=== PATIENT | male | born 1995 | race Caucasian/White ===

== ENCOUNTER 2025-10-07 11:19 | Inpatient (IN) | payer MEDICAID, SELFPAY ==
[2025-10-07] VITALS (14 sets, daily range): BP systolic 123–157; BP diastolic 82–98; PULSE 75–120; RESP 14–97; TEMP 36.2–37.6; O2SAT 95–99; BMI 22.6
--- NOTE | 2025-10-07 12:12 | EKG_ITS ---
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
--- NOTE | 2025-10-07 12:20 | EDNOTE_ITS ---
<Statement entered by Jayda Alvarado MD - 10/07/25 17:40> I, Jayda Alvarado MD, have reviewed the history, exam, and assessment of the patient. I have evaluated the patient independently and agree with the plan of care documented by Dr. Harris. All diagnostic studies were reviewed and discussed. I confirm the diagnosis as documented by the Resident. I was present during the Medical Decision Making for this patient. The patient's plan of care was created between myself and the Resident and consistent with our discussion of the patient's case. The patient presents with acute anemia, evidenced by hemoglobin 6.1, and reports bright red blood in stools for several weeks, raising concern for gastrointestinal bleeding. Additional laboratory findings include lactic acid of 3.5, ferritin 1, iron 9, and glucose 360, which support the diagnosis of iron deficiency and suggest possible systemic effects. The differential diagnosis includes gastrointestinal bleed, thalassemia, sickle cell disease, and chronic kidney disease. Evaluation includes history focused on bleeding risk factors and physical examination for signs of active bleeding or abdominal pathology. The disposition and management plan are guided by the severity of anemia and ongoing bleeding risk, with further workup and close monitoring warranted. ED GI Bleed RME/HPI General Chief complaint: General Adult/Misc Complain Stated complaint: SENT BY PMD FOR LOW HEMOGLOBIN Time Seen by Provider: 10/07/25 11:55 Arrival date/time: 10/07/25 11:19 RME / HPI RME / HPI Narrative: cc: low hemoglobin Patient is a 30-year-old male with a past medical history of developmental delays-mostly nonverbal, diabetes mellitus type 1-[id number], GERD, and anxiety who presented to the emergency room with via private vehicle with a chief complaint of low hemoglobin . Patient was alerted by primary care provider who called and recommended patient follow-up with the emergency room for possible transfusion. Patient's guardian/mother at bedside stated over 2 weeks patient has experienced bright red blood per rectum also noted in stool. This is never happened before. Denied history of ulcers or hemorrhoids. Denied fevers or chills at home. Denied any abdominal pain. Regular bowel movements. Denied diarrhea. Denied blood in urine. No changes in urination. FOBT Negative Related Data Allergies Allergy/AdvReac Type Severity Reaction Status Date / Time pseudoephedrine Allergy Severe PT GETS Verified 10/07/25 11:22 HYPER PER MOM Review of Systems Review of Systems Narrative Review of Systems: General appearance: NO weight change, NO fatigue, NO weakness, NO fever, NO chills, NO night sweats, No cough Skin: NO rash, NO itching, NO sores, NO moles HEENT: NO Trauma, NO nausea, NO vomiting, NO visual changes, NO blurry vision, NO double vision, NO tinnitus, NO vertigo, NO ear discharge, NO rhinorrhea, NO stuffiness, NO sneezing, NO allergy, NO epistaxis. NO Hoarseness, NO sore throat, NO swollen neck. Cardiac: NO Palpitations, NO dyspnea on exertion, NO orthopnea, NO paroxysmal nocturnal dyspnea, NO edema Respiratory: NO Shortness of Breath, NO Wheezing, NO Cough, NO Sputum, NO hemoptysis GI:NO appetite, NO nausea, NO vomiting, NO dysphagia, NO changes in bowel frequency, NO stool color, NO diarrhea, NO constipation, NO hemetemesis, NO hemorrhoids, NO melena, Yes hematechezia, NO abdominal pain, NO jaundice Renal: NO frequency, NO hesitancy, NO urgency, NO hematuria, NO nocturia, NO incontinence MSK: NO muscle weakness, NO gout, NO arthritis, NO muscle stiffness Neuro: NO headaches, NO tremors, NO weakness, NO paralysis, NO seizures, NO loss of consciousness, NO numbness. Hem: NO anemia, NO easy bruising/bleeding, NO petechiae, NO purpura Endo: NO heat/cold intolerance, NO excessive sweating, NO polyuria, NO polydipsia, NO polyphagia, NO thyroid problems, NO diabetes Pysch: NO mood, NO anxiety, NO depression ED Exam Narrative Physical exam: General Appearance: Alert & Oriented X3, well-nourished female who is lying in bed in no acute distress HEENT: Skull symmetrical and atraumatic. Conjunctivae pink and moist. Pupils equal, round, reactive to light and accommodation (PERRL). External ear without lesion or discharge. Straight, nares patient, mucosa pink, no discharge. Cardio: Normal Rate and Rhythm with S1 and S2 heart sounds. No murmurs or extra heart sounds auscultated. No bruits on carotid auscultation. No peripheral edema or cyanosis. Lungs: Symmetric with good expansion. Chest and back non-tender. Breath sounds vesicular without crackles, wheezing or rhonchi Abdomen: Non-tender, Non-distended, Normal Reactive Bowel Sounds Neuro: Alert, cooperative, oriented to person, place, and time. Speech clear. CN grossly intact. Upper motor strength 5/5 and Lower motor strength 5/5. Sensation intact. Course Quality Measures none Orders Category Date Time Status CT Screening NOW Care 10/07/25 12:22 Active Loan Workout Officer Q4H START 00 Care 10/07/25 12:20 Active Continuous Pulse Oximetry NOW Care 10/07/25 12:20 Completed Insert IV NOW Care 10/07/25 12:17 Active Occult Blood,Stool (Nursing) NOW Care 10/07/25 12:14 Active Orthostatic Vitals NOW Care 10/07/25 12:20 Active Transfuse,blood/blood products NOW Care 10/07/25 12:52 Active Consult to Gastroenterology Stat Cons 10/07/25 13:[address] abdomen pelvis w con Stat Exams 10/07/25 12:22 Ordered CBC Stat Lab 10/07/25 12:10 Completed CMP [Comprehensive Metabolic Panel] Stat Lab 10/07/25 12:10 Completed Ferritin Stat Lab 10/07/25 12:10 Completed Iron Panel Stat Lab 10/07/25 12:10 Completed Lactic Acid [Lactate (Lactic Acid)] Stat Lab 10/07/25 12:10 Results Lactic Acid [Lactate (Lactic Acid)] Stat Lab 10/07/25 13:53 Completed Path Review Blood Smear Stat Lab 10/07/25 12:10 Completed Reticulocyte Count Stat Lab 10/07/25 12:10 Completed Type and Screen Stat Lab 10/07/25 12:10 Results prbc [Red Blood Cells] Stat Lab 10/07/25 12:10 Results Pantoprazole Inj [Protonix Inj] Med 10/07/25 12:20 Discontinued 80 mg IVP X1 ONE Ringers Lactated 1000 ml [Lactated Ringers] 1,000 ml Med 10/07/25 12:12 Discontinued IV 999 mls/hr EKG (RT) Stat RT 10/07/25 12:12 Draft Vital Signs Vital signs: Vital Signs Temperature 98.6 F 10/07/25 11:55 Pulse Rate 120 H 10/07/25 11:55 Respiratory Rate 18 10/07/25 11:55 Blood Pressure 150/89 H 10/07/25 11:55 Pulse Oximetry (%) 98 10/07/25 11:55 Oxygen Delivery Method Room Air 10/07/25 11:55 GI Bleed Patient data External records reviewed:: [facility] previous records Clinical information provided by:: none Social determinants that could affect healthcare access:: mental health (hx of developmental delay) Patient has the following chronic illnesses:: Developmental Delay-nonverbal, Diabetes Mellitus type 2 non insulin dependent, anxiety How is presenting disease/condition affected by chronic disease/condition?: exacerbated by (GERD ) Evaluation data The following diagnostics were reviewed and interpreted by me:: lab results and radiology exam(s) Lab and/or radiology exams considered but not ordered:: None Interpretation Summary: Patient is a 30-year-old male with history of developmental delay, anxiety, and diabetes mellitus type 2 who presented to the emergency room with a chief complaint of bright red blood per rectum ongoing for the past 2 weeks off-and-on. Patient's was called by his primary doctor's office to follow-up with the emergency room as his hemoglobin was 6 as an outpatient. No leukocytosis noted on CBC and hemoglobin of 6.1 hematocrit 23.7 and MCV of 63 concern for microcytic anemia. Lactic acid noted 3.5. Sinus tachycardia. Pantoprazole 80 mg IV x 1 given and 1 L bolus. FOBT negative. #Acute blood loss anemia #Acute microcytic anemia #Lactic acidosis - The patient's plan was discussed with attending Dr. Gloria Harris MD PGY2 Internal Medicine Medications / Prescriptions Medications or Prescriptions considered but not ordered:: none Medication administrations:: Medication Administration History Discontinued Medications Lactated Ringer's (Lactated Ringers) 1,000 mls @ 999 mls/hr IV .Q1H1M ONE Stop: 10/07/25 13:12 Last Infusion: 10/07/25 13:20 Dose: Infused Documented By: Admin: 10/07/25 12:26 Dose: 999 mls/hr Documented By: EF Pantoprazole Sodium (Pantoprazole Inj 40 Mg Vial) 80 mg IVP X1 ONE Stop: 10/07/25 12:21 Last Admin: 10/07/25 12:25 Dose: 80 mg Documented By: EF same as above Consultations Consultation(s) initiated? (list below): Yes Consultation #1 (Physician, Specialty, Details): Gastroenterology, Dr. Mayes Time: 13:29 Diagnosis GI bleed differential diagnosis: esophageal varices, Upper gastrointestinal hemorrhage and Lower gastrointestinal hemorrhage Most likely diagnosis given after review of the tests above:: Patient is a 30-year-old male with history of developmental delay, anxiety, and diabetes mellitus type 2 who presented to the emergency room with a chief complaint of bright red blood per rectum ongoing for the past 2 weeks off-and-on. Patient's was called by his primary doctor's office to follow-up with the emergency room as his hemoglobin was 6 as an outpatient. No leukocytosis noted on CBC and hemoglobin of 6.1 hematocrit 23.7 and MCV of 63 concern for microcytic anemia. Lactic acid noted 3.5. Sinus tachycardia. Pantoprazole 80 mg IV x 1 given and 1 L bolus. FOBT negative. #GI bleed #Acute blood loss anemia #Acute microcytic anemia #Lactic acidosis . Admission Indicated Admission indicated?: indicated Admission Request Was there a request for admission?: Yes Admission Attestation Admission request attestation: Discussed case with Dr. Huang,PGY-1 from Hospitalist service regarding admission. Discussed patients ED course, exam findings, labs, and radiology results. The Hospitalist agrees to accept the patient for admission. Disposition Plan Disposition Plan: Admit Discharge Plan Plan Patient Disposition: Admit Acute Care w/in Hospital Patient condition on transfer: Stable Prescriptions/Referrals Referrals: Julia Lorenz PA-C [Primary Care Provider] - In 1 week Problem List Clinical Impression: Acute bleeding Patient/Caregiver Discharge Instructions Print Language: Pashto Stand Alone Forms: [employer] Award Info., Patient Portal Info Letter
[2025-10-07 12:24] LABS: Lactate (Lactic Acid) 3.5 mMol/L (0.4-2.0)
[2025-10-07] MEDS: RINGERS LACTATED 1000 ML 1,000 ML 999 ML IV (12:26)
[2025-10-07 12:32] LABS: Basophils # (Auto) 0.0 Thou/mm3 (0.0-0.2); Basophils % (Auto) 1 % (0-2.5); Eosinophils # (Auto) 0.1 Thou/mm3 (0.0-0.5); Eosinophils % (Auto) 1 % (0-10); Hematocrit 23.7 % (41.0-53.0); Immature Granulocytes Auto 0.01 Thou/mm3 (0.00-0.00); Immature Reticulocyte Fraction 21.3 % (2.3-13.4); Lymphocytes # (Auto) 0.8 Thou/mm3 (1.0-4.8); Lymphocytes % (Auto) 14 % (10-50); Mean Corpuscular HGB Conc 25.7 g/dl (31.0-37.0); Mean Corpuscular Hemoglobin 16.1 pg (25.0-35.0); Mean Corpuscular Volume 63 fL (80-100); Monocytes # (Auto) 0.3 Thou/mm3 (0.0-0.8); Monocytes % (Auto) 5 % (0-12); Neutrophils # (Auto) 4.7 Thou/mm3 (1.8-7.7); Neutrophils % (Auto) 80 % (37-80); Nucleated Red Blood Cell # 0.00 Thou/mm3 (0.00-0.00); Nucleated Red Blood Cell % 0 /100 WBC (0); Platelet Count 385 Thou/mm3 (140-440); RDW Standard Deviation 45.2 fL (35.1-43.9); Red Blood Count 3.78 Miln/mm3 (4.50-5.90); Reticulocyte % (Auto) 1.4 % (0.5-1.5); Reticulocyte Absolute Auto 52.5 Biln/L (25.0-75.0); Reticulocyte Hgb Content 15.6 pg (28.0-35.0); White Blood Count 5.9 Thou/mm3 (3.8-10.6)
[2025-10-07 12:39] LABS: Hemoglobin 6.1 g/dL (13.5-16.0)
[2025-10-07 12:45] LABS: Alanine Aminotransferase 15 U/L (10-49); Albumin, Serum 5.0 gm/dL (3.5-5.0); Albumin/Globulin Ratio 1.9 (1.2-2.2); Alkaline Phosphatase 78 U/L (46-116); Anion Gap 13 (7-16); Aspartate Amino Transferase 24 U/L (0-34); BUN/Creatinine Ratio 11 Ratio (12-20); Bilirubin,Total 0.3 mg/dL (0.3-1.2); Blood Urea Nitrogen 9 mg/dL (9-23); Calcium 9.3 mg/dL (8.3-10.6); Calcium (Corrected) 9.3 mg/dL (8.5-10.1); Carbon Dioxide 24.2 mMol/L (20.0-31.0); Chloride 101 mMol/L (98-107); Creatinine (Component) 0.8 mg/dL (0.6-1.3); Estimated Creatinine Clearance 122.4 mL/min (>60); Globulin 2.6 gm/dL (2.3-3.5); Glucose 360 mg/dL (74-106); Osmolality,Calculated 289 (275-295); Potassium 4.5 mMol/L (3.4-5.1); Sodium 138 mMol/L (136-145); Total Protein 7.6 gm/dL (5.7-8.2); eGFR > 60 See Note
[2025-10-07 12:46] LABS: Path Review Blood Smear Sent to Pathologist
[2025-10-07 13:05] LABS: Ferritin 1 ng/mL (10.5-307.3); Iron 9 mcg/dL (65-175); Percent Iron Saturation 2 % (20-55); Total Iron Binding Capacity 423 mcg/dL (250-425); Unsaturated Iron Binding 414 (225-295)
[2025-10-07 13:59] LABS: Lactate (Lactic Acid) 1.7 mMol/L (0.4-2.0)
--- NOTE | 2025-10-07 14:33 | XR_ITS ---
Examination: . CTA abdomen, with intravenous contrast. CTA pelvis, with intravenous contrast. 2-D sagittal and coronal reconstructions. 3-D reconstructions. Date and time of exam: October 07, 2025, 1533 hours INDICATIONS: Anemia, diagnosis lower gastrointestinal bleeding CTDI vol (mgy) 7.03 DLP (MGycm) 366 Technique: Multiple CTA images, 2.0 mm slice thickness, obtained abdomen, pelvis, with the high-resolution 64 slice scanner. 100 cc Isovue-370 is administered intravenously. Sagittal and coronal 2-D reconstructions are obtained. 3-D reconstructions, angiographic images are obtained. 3-D postprocessing, including vascular maximum intensity projections. Low dose protocols were performed. One or more of the following dose reduction techniques were used; automated exposure control, adjustment of the mA and/or KV according to patient size, use of iterative reconstruction technique. Findings: No visualized liver or splenic lesion No gallstones No pancreatic or adrenal mass Common bile duct 7 mm No renal or ureteral calculi, no hydronephrosis No abnormal extravasation of contrast in the stomach small bowel or large bowel Negative for prostatomegaly No pericecal inflammatory change No diverticulitis Distended urinary bladder Normal appendix IMPRESSION: Mildly enlarged common bile duct, recommend hepatobiliary sonography follow-up No abnormal extravasation of contrast in the gastrointestinal tract Normal appendix No diverticulitis
--- NOTE | 2025-10-07 14:44 | ESHP_ITS ---
<Statement entered by Guillermo Temple MD - 10/19/25 08:30> I reviewed above note and agree with findings and plans. I have also personally examined the patient with medicine team and went over assessment and plan with medical team including international exchange coordinator and resident physician. Documentation for date of: 10/07/25 HPI History of Present Illness Chief complaint: acute anemia and BRBPR History of present illness: Mr. Byers is a 30 year old gentleman with developmental delay and insulin dependent type 2 dm, who presented to the ed following a phone call from his primary care doctor stating that his hgb was 6 and that he should go to the ED emergently. She states that he has a history of iron deficiency anemia for which he takes iron supplements for every other day. She states that he has never had a blood transfusion before, nor colonoscopy, nor EGD. She states that about 1 month ago she began to notice bright red blood per rectum. She states that he does strain with bowel movements. At the daytime facility that the patient attends that some of the staff noticed that the patient was pale and that he was slightly more fatigued than usual. No recent traumas or injuries. She reports seldom use of nsaids and occasional APAP use for headaches or Excedrin. PMH Insulin dependent type 2DM, Meds: APAP and ibuprofen seldomly , iron supplements every other day, and insulin 34 units long acting and 10 units with meals short acting Social Hx. pt lives at home with mom, Yuliya. He is able to ambulate intependently and frequently runs, he can feed himself, and does have hx of self inflicted biting ROS per report from patient momYuliya: Denies abdominal pain, cough, fever, chills, dizziness or difficulty with gait (states that patient likes to run) Endorses fatigue, pallor, constipation, ED course VS afebrile, HR 120s BP 150/89, RR 18, satting 98 on RA Labs notable for hgb 6.1, and low iron panel and ferritin, Glucose elvated at 360, LA wnl 1.7, FOBT negative Imaging: EKG with sinus tachycardia pending CT AP Tx Protonix IV 80 x1 1L LR 2 units PRBC Exam Vital Signs Temp Pulse Resp BP Pulse Ox O2 Del Method 99.2 F 113 H 14 127/89 H 98 Room Air 10/07/25 14:20 10/07/25 14:20 10/07/25 14:20 10/07/25 14:20 10/07/25 14:20 10/07/25 11:55 Narrative Exam GENERAL: no acute distress, hx of developmental delay, unable to assess for orientation, pt is awake and engaging with provider during exam, able to follow simple commands, comfortably laying in bed HEENT: Head AT/ NC. Mucous membranes moist. PERRL. NECK: Supple, no lymphadenopathy, no carotid bruits. CARDIOVASCULAR: sinus tachycardia . Normal S1/S2, No m/r/g. No pitting edema of bilateral LEs. normal capillary refill. RESPIRATORY: CTAB. No wheezing, rhonchi, crackles. GASTROINTESTINAL:abdomen is firm, non tender no palpable masses. Bowel sounds present. no epigastric tenderness on exam no grimacing on abdominal exam to deep palpation MUSCULOSKELETAL:? No cyanosis or edema, no visible joint swelling. NEUROLOGICAL: CN II-XII grossly intact. No focal deficits. Sensation intact, symmetric. able to follow commands PSYCHIATRIC: Awake and alert, not agitated, normal mood and affect. SKIN: anterior chest with some errythematous acne , Mom reports pt has self inflicted bite isaac on his UE. Results: Labs 10/07/25 12:10 10/07/25 12:10 Labs: Short CBC 10/07/25 Range/Units 12:10 WBC 5.9 (3.8-10.6) Thou/mm3 Hgb 6.1 L* (13.5-16.0) g/dL Hct 23.7 L (41.0-53.0) % Plt Count 385 (140-440) Thou/mm3 BMP 10/07/25 12:10 Sodium 138 Potassium 4.5 Chloride 101 Carbon Dioxide 24.2 BUN 9 Creatinine 0.8 Glucose 360 H Calcium 9.3 Liver Function 10/07/25 Range/Units 12:10 Total Bilirubin 0.3 (0.3-1.2) mg/dL AST 24 (0-34) U/L ALT 15 (10-49) U/L Alkaline Phosphatase 78 (46-116) U/L Albumin 5.0 (3.5-5.0) gm/dL Quality Measures Quality Measures VTE prophylaxis Medications Home Medications and Allergies Allergies Allergy/AdvReac Type Severity Reaction Status Date / Time pseudoephedrine Allergy Severe PT GETS Verified 10/07/25 11:22 HYPER PER MOM Visit Medications Acetaminophen (Acetaminophen 325 Mg Tablet) 650 mg PO Q6H PRN PRN Reason: PAIN SCALE 1-3 (mild Stop: 11/06/25 14:32 Dextrose (Dextrose 50%-Water Inj 50 Ml Syringe) 25 ml IV Q15MIN PRN PRN Reason: BG 50-70 responsive npo pt Stop: 11/06/25 14:35 Dextrose (Dextrose 50%-Water Inj 50 Ml Syringe) 50 ml IV Q15MIN PRN PRN Reason: BG <50 OR BG <70 & pt unresponsive Stop: 11/06/25 14:35 Glucagon (Glucagon Inj 1 Mg Vial) 1 mg IM Q15MIN PRN PRN Reason: BG <70, and no IV access Lactated Ringer's (Lactated Ringers) 1,000 mls @ 75 mls/hr IV .[id number] MEAGAN Stop: 11/06/25 14:44 Insulin Human Lispro (Insulin Lispro (Admelog) 1 Unit/0.01 Ml Unit) 0 unit SC AC MEAGAN; Protocol Stop: 11/06/25 16:59 Ondansetron HCl (Ondansetron Inj 2 Mg/Ml Inj 2 Ml) 4 mg IVP Q6H PRN; Protocol PRN Reason: NAUSEA OR VOMITING Stop: 11/06/25 14:32 Discontinued Medications Lactated Ringer's (Lactated Ringers) 1,000 mls @ 999 mls/hr IV .Q1H1M ONE Stop: 10/07/25 13:12 Last Infusion: 10/07/25 13:20 Dose: Infused Pantoprazole Sodium (Pantoprazole Inj 40 Mg Vial) 80 mg IVP X1 ONE Stop: 10/07/25 12:21 Last Admin: 10/07/25 12:25 Dose: 80 mg Assessment & Plan Plan Mr Byers is a 30 year old man with developmental delay who presented with reported BRBPR and low Hgb, and history of GERD and DM, who was found to have Acute microcytic anemia with Hgb 6.1, hemodynamically stable with SBP 150s, HR 120s, admitted for hematechezia pending colonoscopy. Hematachezia Acute on Chronic Microcytic Anemia Constipation SBP 150, HR tachy to 110s per mom had BRBPR, for the past month, states that he strains often with BMs never has had colonoscopy before. she states that he infrequently takes NSAIDs Dx Ferritin low Iron Saturation 2% Iron Low Follow up post transfusion H and H Follow up CT angio abdomen and pelvis Tx Transfuse 2 units prbc IV Iron tomorrow Transfuse if hgb >7 or if symptomatic Plan NG tube ordered for golyteley prep GI consulted, appreciate recs NPO pending colonoscopy GERD per mom it is difficult to ascertain whether he has gerd symptoms given his developmental delay Plan protonix 40 iv qd #Insulin Dependent Type 2 DM A1c pending Blood glucose 360, Home regimen: 34 units long acting qhs and ~10 Units Short acting with meals. Mom states that his sugars generally run high at home and that the insulin regimen was adjusted about 3 months ago Plan SSI step 3 q6hr bedside glucose checks given npo Gave x1 3 Units Regular Insulin IV for bedside glucose 265 Developmental Delay pt is semi verbal and responds with a few words Mom, Yuliya, plans to stay overnight with patient. Spoke with Charge Nurse on Tele, who is ok for pt mom to stay with him overnight - ok for benydrl IV if agitated Dispo: tele pending colonoscopy, ongoing blood transfusions, follow up post transfusion prbc Diet: npo Bowel Reg: golytely prep VTE ppx: hold in setting of suspected GI bleed, SCD q shift GI ppx: Protonix 40 qd IV Code status: Full Plan discussed with my attending Dr. Maverick Chris MD PGY1
--- NOTE | 2025-10-07 14:52 | PD.RESCONSUL ---
HPI Data of Consult Consult date: 10/07/25 Requesting Physician: Guillermo Temple MD Admitting Provider: Guillermo Temple MD Attending Provider: Guillermo Temple MD Primary Care Provider: Julia Lorenz PA-C Consult Narrative Reason for consult: GI bleed History of present illness: Patient is a 60-year-old male past medical history of developmental delays (mostly nonverbal), type 2 diabetes mellitus, GERD, anxiety who presented to the ED on 10/07/2025 with his mother for chief complaint of low hemoglobin. The patient is nonverbal but responds to questions by nodding his head. Most of the history was obtained from his guardian, his mother, at the bedside. According to the mother, the patient has had intermittent bright red blood per rectum for the past 2 weeks to 1 month, with the bleeding becoming more consistent over the past week. The patient recently had a routine checkup with his primary care provider, where blood tests revealed low hemoglobin, prompting the visit to the ED for further evaluation. The guardian reports no prior episodes of hematochezia. The patient denies fever, chills, abdominal pain, changes in bowel movements, nausea, vomiting, or hematuria, hemorrhoids. There is no family history of gastrointestinal or colorectal cancer, though the mother has a history of thyroid cancer. Significant labs and imaging: -Hemoglobin 6.1, hematocrit 23.7, MCV 63, iron 9, iron saturation 2, ferritin - Abdominal CT, pending cc:: cc: Guillermo Temple MD Exam Vital Signs Temp Pulse Resp BP Pulse Ox O2 Del Method 99.2 F 113 H 14 127/89 H 98 Room Air 10/07/25 14:20 10/07/25 14:20 10/07/25 14:20 10/07/25 14:20 10/07/25 14:20 10/07/25 11:55 Narrative Exam General: Alert, no acute distress.Palor, nonverbal Skin: Warm, dry, intact. No rash or ecchymoses. Head: Normocephalic, atraumatic. Eye: Normal conjunctiva, PERRL. Throat: Oral mucosa moist. No obvious lesions in oropharynx. Cardiovascular: Tachycardic, no murmur, +S1/S2. Respiratory: Lungs are clear to auscultation, respirations unlabored, no crackles, no wheezing. Gastrointestinal: Soft, nontender, non-distended. No guarding or rebound tenderness. Hematochezia Extremities: No edema, no cyanosis, no clubbing. Neuro: Alert and oriented x3.No focal deficits observed. Conversant, moving all extremities. No overt cerebellar signs/incoordination. Psychiatric: Cooperative, appropriate affect Results Labs 10/07/25 20:28 10/07/25 12:10 Labs: Short CBC 10/07/25 Range/Units 12:10 WBC 5.9 (3.8-10.6) Thou/mm3 Hgb 6.1 L* (13.5-16.0) g/dL Hct 23.7 L (41.0-53.0) % Plt Count 385 (140-440) Thou/mm3 BMP 10/07/25 12:10 Sodium 138 Potassium 4.5 Chloride 101 Carbon Dioxide 24.2 BUN 9 Creatinine 0.8 Glucose 360 H Calcium 9.3 Liver Function 10/07/25 Range/Units 12:10 Total Bilirubin 0.3 (0.3-1.2) mg/dL AST 24 (0-34) U/L ALT 15 (10-49) U/L Alkaline Phosphatase 78 (46-116) U/L Albumin 5.0 (3.5-5.0) gm/dL Quality Measures Quality Measures none Medications Home Medications and Allergies Home Medications ?Medication ?Instructions ?Recorded ?Confirmed ?Type insulin glargine 100 unit/mL (3 44 unit subcut HS 10/07/25 10/07/25 History mL) subcutaneous pen (Basaglar KwikPen U-100 Insulin) insulin lispro 100 unit/mL 1 sliding scale dose subcut .with 10/07/25 10/07/25 History subcutaneous pen (Admelog SoloStar meals U-100 Insulin lispro) olanzapine 2.5 mg tablet 2.5 mg PO QDAY 10/07/25 10/07/25 History omeprazole 20 mg capsule,delayed 20 mg PO QDAY 10/07/25 10/07/25 History release risperidone 0.5 mg tablet 0.5 mg PO BID 10/07/25 10/07/25 History sitagliptin phosphate 50 1 tab PO BIDWM 10/07/25 10/07/25 History mg-metformin 500 mg tablet (Janumet) Allergies Allergy/AdvReac Type Severity Reaction Status Date / Time pseudoephedrine Allergy Severe PT GETS Verified 10/07/25 11:22 HYPER PER MOM Visit Medications Acetaminophen (Acetaminophen 325 Mg Tablet) 650 mg PO Q6H PRN PRN Reason: PAIN SCALE 1-3 (mild Stop: 11/06/25 14:32 Dextrose (Dextrose 50%-Water Inj 50 Ml Syringe) 25 ml IV Q15MIN PRN PRN Reason: BG 50-70 responsive npo pt Stop: 11/06/25 14:35 Dextrose (Dextrose 50%-Water Inj 50 Ml Syringe) 50 ml IV Q15MIN PRN PRN Reason: BG <50 OR BG <70 & pt unresponsive Stop: 11/06/25 14:35 Glucagon (Glucagon Inj 1 Mg Vial) 1 mg IM Q15MIN PRN PRN Reason: BG <70, and no IV access Lactated Ringer's (Lactated Ringers) 1,000 mls @ 75 mls/hr IV .[id number] MEAGAN Stop: 11/06/25 14:44 Insulin Human Lispro (Insulin Lispro (Admelog) 1 Unit/0.01 Ml Unit) 0 unit SC AC MEAGAN; Protocol Stop: 11/06/25 16:59 Ondansetron HCl (Ondansetron Inj 2 Mg/Ml Inj 2 Ml) 4 mg IVP Q6H PRN; Protocol PRN Reason: NAUSEA OR VOMITING Stop: 11/06/25 14:32 Discontinued Medications Lactated Ringer's (Lactated Ringers) 1,000 mls @ 999 mls/hr IV .[id number] ONE Stop: 10/07/25 13:12 Last Infusion: 10/07/25 13:20 Dose: Infused Pantoprazole Sodium (Pantoprazole Inj 40 Mg Vial) 80 mg IVP X1 ONE Stop: 10/07/25 12:21 Last Admin: 10/07/25 12:25 Dose: 80 mg Assessment & Plan Plan Patient is a 60-year-old male past medical history of developmental delays (mostly nonverbal), type 2 diabetes mellitus, GERD, anxiety who presented to the ED on 10/07/2025 with his mother for chief complaint of low hemoglobin. Gastroenterology consulted for hematochezia. Patient admitted for lower GI bleed evaluation and management. #Acute blood loss anemia 2/2 #Hematochezia, lower GI bleed #Iron deficiency anemia, microcytic anemia Patient presented with 2 weeks 2 weeks of hematochezia with no melena and hematemesis. Patient denies abdominal pain, nausea, vomiting, diarrhea. Patient looks pale and is tachycardic, with no fever or leukocytosis. 2 units of pRBC order by ED provider, currently transfusing 1 bag. Iron deficiency anemia likely in setting of acute blood loss anemia. Hemoglobin 6.1,hematocrit 23.7. Lactic acid 3.5, iron 9, iron saturation 2, ferritin 1, iron saturation 2%, RDW 45.2 -Patient typed and screened -Monitor H&H. Transfusing for Hgb <7 or symptomatic. - Replete Iron -Avoid NSAIDs/ASA/chemical prophylaxis -Pantoprazole BID 40mg IV - Clear liquid diet - Start Golytely post-transfusion - Obtain consent for colonoscopy with possible biopsy possible therapeutic intervention under intravenous moderate sedation -Pain and nausea control as needed # Type 2 diabetes mellitus #GERD #Anxiety -Continue management per primary team Patient seen and assessed under supervision of attending physician Dr.Kumar Zeny Hernandez MD PGY-1, Internal Medicine Please note: this document was transcribed using voice recognition technology; minor inaccuracies may be present. Attending Provider Attestation/Addendum Patient evaluated laboratory data reviewed and imaging studies reviewed patient with hematochezia GoLytely prep once clear consent obtained for fiberoptic colonoscopy with possible biopsy possible therapeutic intervention under intravenous moderate sedation serial CBC will follow the patient Thank you very much for the opportunity to participate in the care of this patient
[2025-10-07] MEDS: RINGERS LACTATED 1000 ML 1,000 ML 75 ML IV (15:19)
[2025-10-07 15:21] LABS: Reflex Lactate? Y
--- NOTE | 2025-10-07 15:52 | PC.SS ---
Patient Napoleon Byers is a 30 Year old male who was brought in the emergency room for Lower GI Bleed Severe Microcytic Anemi. SS met at bedside, patient was getting procedure at the time. Patient's grandmother, Fannie Byers was able to verify demographic information. Fannie reports patient's mother, Yuliya Byers is surrogate decision maker, [phone]. Patient is Developmentally delayed and is non verbal. Patient is able to complete all ADL's independently and does not utilize any source of DME to assist with ambulation. Choice of pharmacy is [facility]. PCP is Julia Lorenz. At time of discharge patient will return back home, no further needs at the time. Discharge plan: Home Next of kin, Mother, Yuliya Byers PCP: Julia Lorenz
--- NOTE | 2025-10-07 16:58 | XR_ITS ---
EXAMINATION: AP chest single view TECHNIQUE: AP portable semiupright chest single view Date and time: October 07, 2025, 1714 hours, comparison August 20, 2009 INDICATIONS: Post orogastric tube placement FINDINGS: Orogastric tube in the stomach satisfactory position. Normal heart size No lobar pneumonia The osseous structures are intact IMPRESSION: Orogastric tube in the stomach satisfactory position
[2025-10-07 17:19] LABS: Lactic Acid, 3 HR 1.9 mMol/L (0.4-2.0)
[2025-10-07] MEDS: INSULIN LISPRO (AdmeLOG) 1 UNIT/0.01 ML UNIT SC (17:30)
[2025-10-07 17:32] LABS: Glucose Estimated Average 194 mg/dL (80-131); Hemoglobin A1C 8.4 % Hgb (4.8-6.0)
[2025-10-07] MEDS: INSULIN HUM REGULAR 1 UNIT/0.01 ML (PER UNIT) 3 UNIT IV (17:33)
[2025-10-07 20:42] LABS: Hematocrit 26.7 % (41.0-53.0)
[2025-10-07 20:50] LABS: Hemoglobin 7.7 g/dL (13.5-16.0)
[2025-10-07] MEDS: NA SU/NAHCO3/KC/PEG (Golytely) 4,000 ML BTL 4000 ML PO (22:16)
[2025-10-08] VITALS (8 sets, daily range): BP systolic 125–140; BP diastolic 73–94; PULSE 77–114; RESP 15–99; TEMP 36.1–37.1; O2SAT 92–98; BMI 20.8; BMI 20.7
[2025-10-08] MEDS: RINGERS LACTATED 1000 ML 1,000 ML 75 ML IV ×2 (05:14→17:23)
[2025-10-08] MEDS: INSULIN LISPRO (AdmeLOG) 1 UNIT/0.01 ML UNIT SC ×3 (05:37→17:22)
[2025-10-08 06:08] LABS: Basophils # (Auto) 0.0 Thou/mm3 (0.0-0.2); Basophils % (Auto) 0 % (0-2.5); Eosinophils # (Auto) 0.1 Thou/mm3 (0.0-0.5); Eosinophils % (Auto) 1 % (0-10); Hematocrit 27.7 % (41.0-53.0); Immature Granulocytes Auto 0.02 Thou/mm3 (0.00-0.00); Lymphocytes # (Auto) 1.0 Thou/mm3 (1.0-4.8); Lymphocytes % (Auto) 14 % (10-50); Mean Corpuscular HGB Conc 28.2 g/dl (31.0-37.0); Mean Corpuscular Hemoglobin 19.2 pg (25.0-35.0); Mean Corpuscular Volume 68 fL (80-100); Monocytes # (Auto) 0.5 Thou/mm3 (0.0-0.8); Monocytes % (Auto) 6 % (0-12); Neutrophils # (Auto) 5.7 Thou/mm3 (1.8-7.7); Neutrophils % (Auto) 79 % (37-80); Nucleated Red Blood Cell # 0.00 Thou/mm3 (0.00-0.00); Nucleated Red Blood Cell % 0 /100 WBC (0); Platelet Count 284 Thou/mm3 (140-440); RDW Standard Deviation 59.8 fL (35.1-43.9); Red Blood Count 4.06 Miln/mm3 (4.50-5.90); White Blood Count 7.3 Thou/mm3 (3.8-10.6)
[2025-10-08 06:16] LABS: Hemoglobin 7.8 g/dL (13.5-16.0)
[2025-10-08 06:38] LABS: Alanine Aminotransferase 11 U/L (10-49); Albumin, Serum 4.4 gm/dL (3.5-5.0); Albumin/Globulin Ratio 1.7 (1.2-2.2); Alkaline Phosphatase 72 U/L (46-116); Anion Gap 16 (7-16); Aspartate Amino Transferase < 8 U/L (0-34); BUN/Creatinine Ratio 10 Ratio (12-20); Bilirubin,Total 1.2 mg/dL (0.3-1.2); Blood Urea Nitrogen 6 mg/dL (9-23); Calcium 9.5 mg/dL (8.3-10.6); Calcium (Corrected) 9.5 mg/dL (8.5-10.1); Carbon Dioxide 21.5 mMol/L (20.0-31.0); Chloride 103 mMol/L (98-107); Creatinine (Component) 0.6 mg/dL (0.6-1.3); Estimated Creatinine Clearance 150.3 mL/min (>60); Globulin 2.6 gm/dL (2.3-3.5); Glucose 293 mg/dL (74-106); Magnesium 1.7 mg/dL (1.6-2.6); Osmolality,Calculated 288 (275-295); Phosphorous 2.8 mg/dL (2.4-5.1); Potassium 4.2 mMol/L (3.4-5.1); Sodium 140 mMol/L (136-145); Total Protein 7.0 gm/dL (5.7-8.2); eGFR > 60 See Note
[2025-10-08 06:46] LABS: Path Review Blood Smear Sent to Pathologist
--- NOTE | 2025-10-08 08:29 | ESPR_ITS ---
<Statement entered by Guillermo Temple MD - 10/19/25 08:30> I reviewed above note and agree with findings and plans. I have also personally examined the patient with medicine team and went over assessment and plan with medical team including internal audit director and resident physician. Documentation for date of: 10/08/25 Subjective Subjective Interval history: Patient seen and examined at bedside pt mom, Yuliya, and grandparents Faith and Adrián post transfusion h and h stable and apropriate bump from 6 to 8 Hgb grandparents state that a few times a week when pt has headaches he will recieve ibuprofen NG tube in place, ongoing golytely prep, pending colonoscopy Exam Vital Signs Temp Pulse Resp BP Pulse Ox O2 Del Method 97.1 F 82 15 131/79 H 97 Room Air 10/08/25 04:00 10/08/25 04:00 10/08/25 04:00 10/08/25 04:00 10/08/25 04:00 10/08/25 04:00 Narrative Exam GENERAL: no acute distress pleasant demeanor , hx of developmental delay, unable to assess for orientation, pt is awake and engaging with provider during exam, able to follow simple commands, comfortably laying in bed HEENT: Head AT/ NC. Mucous membranes moist. PERRL. NECK: Supple, no lymphadenopathy, no carotid bruits. CARDIOVASCULAR: sinus tachycardia . Normal S1/S2, No m/r/g. No pitting edema of bilateral LEs. normal capillary refill. RESPIRATORY: CTAB. No wheezing, rhonchi, crackles. GASTROINTESTINAL:abdomen is firm, non tender no palpable masses. Bowel sounds present. no epigastric tenderness on exam no grimacing on abdominal exam to deep palpation MUSCULOSKELETAL:? No cyanosis or edema, no visible joint swelling. NEUROLOGICAL: CN II-XII grossly intact. No focal deficits. Sensation intact, symmetric. able to follow commands PSYCHIATRIC: Awake and alert, not agitated, normal mood and affect. SKIN: anterior chest with some errythematous acne , Mom reports pt has self inflicted bite isaac on his UE. Objective Labs 10/08/25 13:20 10/08/25 05:14 Labs: Laboratory Results - last 24 hr 10/07/25 10/07/25 10/07/25 12:10 13:53 16:42 WBC 5.9 RBC 3.78 L Hgb 6.1 L* Hct 23.7 L MCV 63 L MCH 16.1 L MCHC 25.7 L RDW Std Deviation 45.2 H Plt Count 385 Neut % (Auto) 80 Lymph % (Auto) 14 Harnett % (Auto) 5 Eos % (Auto) 1 Baso % (Auto) 1 Neut # (Auto) 4.7 Lymph # (Auto) 0.8 L [place]ett # (Auto) 0.3 Eos # (Auto) 0.1 Baso # (Auto) 0.0 Immature Gran # (Auto) 0.01 H Absolute Nucleated RBC 0.00 Immature Gran % 0 Nucleated RBC % 0 Smear Path Review Sent to Pathologist Retic Count (auto) 1.4 Absolute Retic 52.5 Immature Retic Fraction 21.3 H Retic Hgb Content CHr 15.6 L Sodium 138 Potassium 4.5 Chloride 101 Carbon Dioxide 24.2 Anion Gap 13 BUN 9 Creatinine 0.8 Estim Creat Clear Calc 122.4 eGFR > 60 BUN/Creatinine Ratio 11 L Glucose [address] Glu mg/dL Cancelled 194 H Hemoglobin A1c Cancelled 8.4 H Calculated Osmolality 289 Lactic Acid 3.5 H 1.7 1.9 Calcium 9.3 Corrected Calcium 9.3 Phosphorus Magnesium Iron 9 L TIBC 423 Iron Saturation 2 L Unsat Iron Binding 414 H Ferritin 1 L Total Bilirubin 0.3 AST 24 ALT 15 Alkaline Phosphatase 78 Total Protein 7.6 Albumin 5.0 Globulin 2.6 Albumin/Globulin Ratio 1.9 Blood Type A Negative Antibody Screen NEGATIVE Crossmatch See Detail Blood Bank Wristband ID Yes 10/07/25 10/08/25 20:28 05:14 WBC 7.3 RBC 4.06 L Hgb 7.7 L D 7.8 L Hct 26.7 L 27.7 L MCV 68 L MCH 19.2 L MCHC 28.2 L RDW Std Deviation 59.8 H Plt Count 284 D Neut % (Auto) 79 Lymph % (Auto) 14 Harnett % (Auto) 6 Eos % (Auto) 1 Baso % (Auto) 0 Neut # (Auto) 5.7 Lymph # (Auto) 1.0 Harnett # (Auto) 0.5 Eos # (Auto) 0.1 Baso # (Auto) 0.0 Immature Gran # (Auto) 0.02 H Absolute Nucleated RBC 0.00 Immature Gran % 0 Nucleated RBC % 0 Smear Path Review Sent to Pathologist Retic Count (auto) Absolute Retic Immature Retic Fraction Retic Hgb Content CHr Sodium 140 Potassium 4.2 Chloride 103 Carbon Dioxide 21.5 Anion Gap 16 BUN 6 L Creatinine 0.6 Estim Creat Clear Calc 150.3 eGFR > 60 BUN/Creatinine Ratio 10 L Glucose [address] Glu mg/dL Hemoglobin A1c Calculated Osmolality 288 Lactic Acid Calcium 9.5 Corrected Calcium 9.5 Phosphorus 2.8 Magnesium 1.7 Iron TIBC Iron Saturation Unsat Iron Binding Ferritin Total Bilirubin 1.2 D AST < 8 ALT 11 Alkaline Phosphatase 72 Total Protein 7.0 Albumin 4.4 D Globulin 2.6 Albumin/Globulin Ratio 1.7 Blood Type Antibody Screen Crossmatch Blood Bank Wristband ID Quality Measures Quality Measures VTE prophylaxis Assessment & Plan Assessment Current Active Medications: Generic Name Dose Route Start Last Admin Trade Name Freq PRN Reason Stop Dose Admin Acetaminophen 650 mg 10/07/25 14:33 Acetaminophen 325 Mg Tablet PO 11/06/25 14:32 Q6H PRN PAIN SCALE 1-3 (mild Dextrose 25 ml 10/07/25 14:36 Dextrose 50%-Water Inj 50 Ml Syringe IV 11/06/25 14:35 Q15MIN PRN BG 50-70 responsive npo pt Dextrose 50 ml 10/07/25 14:36 Dextrose 50%-Water Inj 50 Ml Syringe IV 11/06/25 14:35 Q15MIN PRN BG <50 OR BG <70 & pt unresponsive Glucagon 1 mg 10/07/25 14:36 Glucagon Inj 1 Mg Vial IM Q15MIN PRN BG <70, and no IV access Lactated Ringer's 1,000 mls @ 75 mls/hr 10/07/25 14:45 10/08/25 05:14 Lactated Ringers IV 11/06/25 14:44 75 mls/hr .[id number] MEAGAN Administration Magnesium Sulfate 4 gm in 50 mls @ 12.5 mls/hr 10/08/25 08:23 Magnesium Sulfate Ivpb IV 10/08/25 12:22 X1 ONE Insulin Human Lispro 0 unit 10/07/25 18:00 10/08/25 05:37 Insulin Lispro (Admelog) 1 Unit/0.01 Ml Unit SC 11/06/25 17:59 3 unit Q6HR MEAGAN Administration Protocol Iron Sucrose 200 mg 10/08/25 09:00 Iron Sucrose Cplx Inj 20 Mg/Ml Vial 5 Ml IVP 10/10/25 09:01 QDAY MEAGAN Ondansetron HCl 4 mg 10/07/25 14:33 Ondansetron Inj 2 Mg/Ml Inj 2 Ml IVP 11/06/25 14:32 Q6H PRN NAUSEA OR VOMITING Protocol Pantoprazole Sodium 40 mg 10/08/25 09:00 Pantoprazole Inj 40 Mg Vial IVP 11/07/25 08:59 QDAY MEAGAN Plan Plan Mr Byers is a 30 year old man with developmental delay who presented with reported BRBPR and low Hgb, and history of GERD and DM, who was found to have Acute microcytic anemia with Hgb 6.1, hemodynamically stable with SBP 150s, HR 120s, admitted for hematechezia pending colonoscopy, post 2 units prbc transfusion, and stable Hgb at 8.0. Hematachezia Acute on Chronic Microcytic Anemia - stable Constipation SBP 150, HR tachy to 110s per mom had BRBPR, for the past month, states that he strains often with BMs never has had colonoscopy before. she states that he infrequently takes NSAIDs for headaches Recieved 2 units PRBC, bumped hgb appropriately, stable @8.0 Dx Ferritin low Iron Saturation 2% Iron Low CT angio abdomen and pelvis unremarkable Tx Daily CBC IV Iron sucrose 200 1/3 infusions given Transfuse if hgb >7 or if symptomatic Plan NG tube for golyteley prep- ongoing GI consulted, appreciate recs clears pending colonoscopy GERD per mom it is difficult to ascertain whether he has gerd symptoms given his developmental delay Plan protonix 40 iv qd #Insulin Dependent Type 2 DM A1c 8.4 Blood glucose 360, Home regimen: 44 units long acting qhs and ~10 Units Short acting with meals. Mom states that his sugars generally run high at home and that the insulin regimen was adjusted about 3 months ago Plan Degludec 15 units SSI step 3 q6hr bedside glucose checks given on clears Developmental Delay pt is semi verbal and responds with a few words Mom, Yuliya, plans to stay overnight with patient. Spoke with Charge Nurse on Tele, who is ok for pt mom to stay with him overnight - ok for benydrl IV if agitated Dispo: tele pending colonoscopy, Diet: Clears Bowel Reg: golytely prep VTE ppx: hold in setting of suspected GI bleed, SCD q shift GI ppx: Protonix 40 qd IV Code status: Full Plan discussed with my attending Dr. Maverick Chris MD PGY1
[2025-10-08] MEDS: Magnesium Sulfate 4 GM Ivpb 4 GM/50 ML BAG IV (09:45)
[2025-10-08] MEDS: IRON SUCROSE CPLX INJ 20 MG/ML VIAL 5 ML 200 MG IVP (09:46)
[2025-10-08] MEDS: INSULIN DEGLUDEC 5 UNIT/0.05 ML (PER 5 UNITS) 15 UNIT SC (09:49)
[2025-10-08 13:41] LABS: Hematocrit 28.1 % (41.0-53.0)
[2025-10-08 13:42] LABS: Hemoglobin 8.0 g/dL (13.5-16.0)
--- NOTE | 2025-10-08 14:17 | PC.SS ---
rounding note: Pending colonoscopy. D/c Sat. home
--- NOTE | 2025-10-08 17:46 | ESPR_ITS ---
Documentation for date of: 10/08/25 Subjective Subjective Interval history: Hemoglobin hematocrit 8.0 and 28.1 GoLytely prep in progress patient was scheduled for a colonoscopy but he is not clear additional GoLytely will be given Exam Vital Signs Temp Pulse Resp BP Pulse Ox O2 Del Method 97.0 F 87 22 H 125/82 97 Room Air 10/08/25 16:00 10/08/25 16:00 10/08/25 16:00 10/08/25 16:00 10/08/25 16:00 10/08/25 16:00 Objective Labs 10/08/25 13:20 10/08/25 05:14 Labs: Laboratory Results - last 24 hr 10/07/25 10/07/25 10/08/25 12:10 20:28 05:14 WBC 7.3 RBC 4.06 L Hgb 7.7 L D 7.8 L Hct 26.7 L 27.7 L MCV 68 L MCH 19.2 L MCHC 28.2 L RDW Std Deviation 59.8 H Plt Count 284 D Neut % (Auto) 79 Lymph % (Auto) 14 Isabella % (Auto) 6 Eos % (Auto) 1 Baso % (Auto) 0 Neut # (Auto) 5.7 Lymph # (Auto) 1.0 Isabella # (Auto) 0.5 Eos # (Auto) 0.1 Baso # (Auto) 0.0 Immature Gran # (Auto) 0.02 H Absolute Nucleated RBC 0.00 Immature Gran % 0 Nucleated RBC % 0 Smear Path Review Sent to Pathologist Sodium 140 Potassium 4.2 Chloride 103 Carbon Dioxide 21.5 Anion Gap 16 BUN 6 L Creatinine 0.6 Estim Creat Clear Calc 150.3 eGFR > 60 BUN/Creatinine Ratio 10 L Glucose 293 H D Calculated Osmolality 288 Calcium 9.5 Corrected Calcium 9.5 Phosphorus 2.8 Magnesium 1.7 Total Bilirubin 1.2 D AST < 8 ALT 11 Alkaline Phosphatase 72 Total Protein 7.0 Albumin 4.4 D Globulin 2.6 Albumin/Globulin Ratio 1.7 Crossmatch See Detail 10/08/25 13:20 WBC RBC Hgb 8.0 L Hct 28.1 L MCV MCH MCHC RDW Std Deviation Plt Count Neut % (Auto) Lymph % (Auto) Isabella % (Auto) Eos % (Auto) Baso % (Auto) Neut # (Auto) Lymph # (Auto) Isabella # (Auto) Eos # (Auto) Baso # (Auto) Immature Gran # (Auto) Absolute Nucleated RBC Immature Gran % Nucleated RBC % Smear Path Review Sodium Potassium Chloride Carbon Dioxide Anion Gap BUN Creatinine Estim Creat Clear Calc eGFR BUN/Creatinine Ratio Glucose Calculated Osmolality Calcium Corrected Calcium Phosphorus Magnesium Total Bilirubin AST ALT Alkaline Phosphatase Total Protein Albumin Globulin Albumin/Globulin Ratio Crossmatch Impressions Impression: Hematochezia Anemia of blood loss Plan GoLytely prep to continue for possible colonoscopy tomorrow Assessment & Plan Time Spent With Patient Time: Total time spent is greater than 50% in coordination of care (as documented) at patient's floor/unit and/or counseling patient:
[2025-10-08 21:32] LABS: Hematocrit 27.1 % (41.0-53.0)
[2025-10-08 21:38] LABS: Hemoglobin 7.7 g/dL (13.5-16.0)
[2025-10-08] MEDS: NA SU/NAHCO3/KC/PEG (Golytely) 4,000 ML BTL 4000 ML PO (23:35)
[2025-10-09] VITALS (22 sets, daily range): BP systolic 122–170; BP diastolic 69–105; PULSE 64–114; RESP 14–93; TEMP 35.9–36.8; O2SAT 93–100; BMI 21.2
[2025-10-09 06:27] LABS: Basophils # (Auto) 0.0 Thou/mm3 (0.0-0.2); Basophils % (Auto) 1 % (0-2.5); Eosinophils # (Auto) 0.1 Thou/mm3 (0.0-0.5); Eosinophils % (Auto) 2 % (0-10); Hematocrit 26.8 % (41.0-53.0); Immature Granulocytes Auto 0.02 Thou/mm3 (0.00-0.00); Lymphocytes # (Auto) 0.8 Thou/mm3 (1.0-4.8); Lymphocytes % (Auto) 12 % (10-50); Mean Corpuscular HGB Conc 28.4 g/dl (31.0-37.0); Mean Corpuscular Hemoglobin 19.4 pg (25.0-35.0); Mean Corpuscular Volume 68 fL (80-100); Monocytes # (Auto) 0.6 Thou/mm3 (0.0-0.8); Monocytes % (Auto) 9 % (0-12); Neutrophils # (Auto) 5.0 Thou/mm3 (1.8-7.7); Neutrophils % (Auto) 76 % (37-80); Nucleated Red Blood Cell # 0.00 Thou/mm3 (0.00-0.00); Nucleated Red Blood Cell % 0 /100 WBC (0); Platelet Count 264 Thou/mm3 (140-440); RDW Standard Deviation 59.6 fL (35.1-43.9); Red Blood Count 3.92 Miln/mm3 (4.50-5.90); White Blood Count 6.6 Thou/mm3 (3.8-10.6)
[2025-10-09 06:34] LABS: Hemoglobin 7.6 g/dL (13.5-16.0)
[2025-10-09] MEDS: RINGERS LACTATED 1000 ML 1,000 ML 75 ML IV (06:44)
[2025-10-09 06:59] LABS: Alanine Aminotransferase 9 U/L (10-49); Albumin, Serum 4.3 gm/dL (3.5-5.0); Albumin/Globulin Ratio 1.7 (1.2-2.2); Alkaline Phosphatase 73 U/L (46-116); Anion Gap 15 (7-16); Aspartate Amino Transferase 17 U/L (0-34); BUN/Creatinine Ratio 8 Ratio (12-20); Bilirubin,Total 0.6 mg/dL (0.3-1.2); Blood Urea Nitrogen < 5 mg/dL (9-23); Calcium 9.1 mg/dL (8.3-10.6); Calcium (Corrected) 9.1 mg/dL (8.5-10.1); Carbon Dioxide 23.4 mMol/L (20.0-31.0); Chloride 103 mMol/L (98-107); Creatinine (Component) 0.6 mg/dL (0.6-1.3); Estimated Creatinine Clearance 153.8 mL/min (>60); Globulin 2.6 gm/dL (2.3-3.5); Glucose 160 mg/dL (74-106); Magnesium 1.8 mg/dL (1.6-2.6); Osmolality,Calculated 281 (275-295); Phosphorous 3.7 mg/dL (2.4-5.1); Potassium 3.9 mMol/L (3.4-5.1); Sodium 141 mMol/L (136-145); Total Protein 6.9 gm/dL (5.7-8.2); eGFR > 60 See Note
[2025-10-09] MEDS: IRON SUCROSE CPLX INJ 20 MG/ML VIAL 5 ML 200 MG IVP (08:12)
--- NOTE | 2025-10-09 08:13 | ESPR_ITS ---
<Statement entered by Guillermo Temple MD - 10/19/25 08:31> I reviewed above note and agree with findings and plans. I have also personally examined the patient with medicine team and went over assessment and plan with medical team including software development intern and resident physician. <Statement entered by Paulina Jacome MD - 10/09/25 17:31> Patient is seen at bedside, currently has no complaints patient is undergoing GoLytely prep through NG tube. Hemoglobin is stable patient will be undergoing colonoscopy today. Mom is at bedside who stated patient was unable to rest last night due to noise. Patient was seen and examined by me personally. I have directly supervised and reviewed documentation by the team resident and agree with its findings. ------- Plan of care was discussed with the attending, Dr. Maevrick Jacome, PGY-2 Documentation for date of: 10/09/25 Subjective Subjective Interval history: patient seen and examined at bedside with mom, madonna present states that patient had some visitors come see him in the hospital and brought baloons, he is not sleeping well, per mom, due to persistent interruptions Hgb stable at 7.7 finally passing clear stools, pending colonoscopy today Exam Vital Signs Temp Pulse Resp BP Pulse Ox O2 Del Method 97.4 F 81 22 H 138/80 H 93 L Room Air 10/09/25 08:00 10/09/25 08:00 10/09/25 08:00 10/09/25 08:00 10/09/25 08:00 10/09/25 08:00 Narrative Exam GENERAL: no acute distress pleasant demeanor , hx of developmental delay, unable to assess for orientation, pt is awake and engaging with provider during exam, able to follow simple commands, comfortably laying in bed HEENT: Head AT/ NC. Mucous membranes moist. PERRL. NECK: Supple, no lymphadenopathy, no carotid bruits. CARDIOVASCULAR: sinus tachycardia . Normal S1/S2, No m/r/g. No pitting edema of bilateral LEs. normal capillary refill. RESPIRATORY: CTAB. No wheezing, rhonchi, crackles. GASTROINTESTINAL:abdomen is firm, non tender no palpable masses. Bowel sounds present. no epigastric tenderness on exam no grimacing on abdominal exam to deep palpation MUSCULOSKELETAL:? No cyanosis or edema, no visible joint swelling. NEUROLOGICAL: CN II-XII grossly intact. No focal deficits. Sensation intact, symmetric. able to follow commands PSYCHIATRIC: Awake and alert, not agitated, normal mood and affect. SKIN: anterior chest with some errythematous acne , Mom reports pt has self inflicted bite isaac on his UE. Objective Labs 10/09/25 05:46 10/09/25 05:46 Labs: Laboratory Results - last 24 hr 10/08/25 10/08/25 10/09/25 13:20 20:48 05:46 WBC 6.6 RBC 3.92 L Hgb 8.0 L 7.7 L 7.6 L Hct 28.1 L 27.1 L 26.8 L MCV 68 L MCH 19.4 L MCHC 28.4 L RDW Std Deviation 59.6 H Plt Count 264 Neut % (Auto) 76 Lymph % (Auto) 12 [place] % (Auto) 9 Eos % (Auto) 2 Baso % (Auto) 1 Neut # (Auto) 5.0 Lymph # (Auto) 0.8 L [place] # (Auto) 0.6 Eos # (Auto) 0.1 Baso # (Auto) 0.0 Immature Gran # (Auto) 0.02 H Absolute Nucleated RBC 0.00 Immature Gran % 0 Nucleated RBC % 0 Sodium 141 Potassium 3.9 Chloride 103 Carbon Dioxide 23.4 Anion Gap 15 BUN < 5 L Creatinine 0.6 Estim Creat Clear Calc 153.8 eGFR > 60 BUN/Creatinine Ratio 8 L Glucose 160 H D Calculated Osmolality 281 Calcium 9.1 Corrected Calcium 9.1 Phosphorus 3.7 Magnesium 1.8 Total Bilirubin 0.6 D AST 17 ALT 9 L Alkaline Phosphatase 73 Total Protein 6.9 Albumin 4.3 Globulin 2.6 Albumin/Globulin Ratio 1.7 Quality Measures Quality Measures VTE prophylaxis Assessment & Plan Assessment Current Active Medications: Generic Name Dose Route Start Last Admin Trade Name Freq PRN Reason Stop Dose Admin Acetaminophen 650 mg 10/07/25 14:33 Acetaminophen 325 Mg Tablet PO 11/06/25 14:32 Q6H PRN PAIN SCALE 1-3 (mild Dextrose 25 ml 10/07/25 14:36 Dextrose 50%-Water Inj 50 Ml Syringe IV 11/06/25 14:35 Q15MIN PRN BG 50-70 responsive npo pt Dextrose 50 ml 10/07/25 14:36 Dextrose 50%-Water Inj 50 Ml Syringe IV 11/06/25 14:35 Q15MIN PRN BG <50 OR BG <70 & pt unresponsive Glucagon 1 mg 10/07/25 14:36 Glucagon Inj 1 Mg Vial IM Q15MIN PRN BG <70, and no IV access Lactated Ringer's 1,000 mls @ 75 mls/hr 10/07/25 14:45 10/09/25 06:44 Lactated Ringers IV 11/06/25 14:44 75 mls/hr .[id number] MEAGAN Administration Insulin Degludec 15 unit 10/08/25 09:00 10/08/25 09:49 Insulin Degludec 5 Unit/0.05 Ml (Per 5 Units) SC 11/07/25 08:59 15 unit On Hold: 10/09/25 08:09 QDAY MEAGAN Administration Insulin Human Lispro 0 unit 10/07/25 18:00 10/09/25 05:01 Insulin Lispro (Admelog) 1 Unit/0.01 Ml Unit SC 11/06/25 17:59 Not Given Q6HR MEAGAN Protocol Iron Sucrose 200 mg 10/08/25 09:00 10/08/25 09:46 Iron Sucrose Cplx Inj 20 Mg/Ml Vial 5 Ml IVP 10/10/25 09:01 200 mg QDAY MEAGAN Administration Ondansetron HCl 4 mg 10/07/25 14:33 Ondansetron Inj 2 Mg/Ml Inj 2 Ml IVP 11/06/25 14:32 Q6H PRN NAUSEA OR VOMITING Protocol Pantoprazole Sodium 40 mg 10/08/25 09:00 10/08/25 09:45 Pantoprazole Inj 40 Mg Vial IVP 11/07/25 08:59 40 mg QDAY MEAGAN Administration Plan Plan Mr Byers is a 30 year old man with developmental delay who presented with reported BRBPR and low Hgb, and history of GERD and DM, who was found to have Acute microcytic anemia with Hgb 6.1, hemodynamically stable with SBP 150s, HR 120s, admitted for hematechezia pending colonoscopy, post 2 units prbc transfusion, and stable Hgb at 7.7 Hematachezia Acute on Chronic Microcytic Anemia - stable Constipation SBP 150, HR tachy to 110s per mom had BRBPR, for the past month, states that he strains often with BMs never has had colonoscopy before. she states that he infrequently takes NSAIDs for headaches Recieved 2 units PRBC, bumped hgb appropriately, stable @8.0 Dx Ferritin low Iron Saturation 2% Iron Low CT angio abdomen and pelvis unremarkable Tx Daily CBC IV Iron sucrose 200 2/3 infusions given Transfuse if hgb >7 or if symptomatic Plan NG tube for golyteley prep- completed GI consulted, appreciate recs npo pending colonoscopy today GERD per mom it is difficult to ascertain whether he has gerd symptoms given his developmental delay Plan protonix 40 iv qd #Insulin Dependent Type 2 DM A1c 8.4 Blood glucose 360, Home regimen: 44 units long acting qhs and ~10 Units Short acting with meals. Mom states that his sugars generally run high at home and that the insulin regimen was adjusted about 3 months ago Plan Degludec 15 units- held am dose 2/2 bgluco 155 SSI step 3 q6hr bedside glucose checks given on npo Developmental Delay pt is semi verbal and responds with a few words Mom, Madonna, plans to stay overnight with patient. Spoke with Charge Nurse on Tele, who is ok for pt mom to stay with him overnight - patient is highly cooperative. Dispo: tele pending colonoscopy, Diet: npo Bowel Reg: golytely prep VTE ppx: hold in setting of suspected GI bleed, SCD q shift GI ppx: Protonix 40 qd IV Code status: Full Plan discussed with my attending Dr. Temple and my senior Dr. Jacome. Francisca Chris MD PGY1
[2025-10-09] MEDS: Magnesium Sulfate 4 GM Ivpb 4 GM/50 ML BAG IV (10:35)
[2025-10-09] MEDS: LIDOCAINE JELLY 2% (Urojet) 10 ML TUBE TOP (13:05)
--- NOTE | 2025-10-09 13:19 | SUR.PHASEI ---
Arrived to recovery bay 1 via [facility]. Report received from Alayna TIRADO. Resting with eyes open. No c/o pain or discomfort. Passing gas rectally. Responding to questions and commands appropriately.
--- NOTE | 2025-10-09 13:50 | SUR.PHASEI ---
Taken to room 265 via gurney by Fan TIRADO. Resting with eyes open, Responding appropriately. Content, no c/o pain or discomfort. No s/o distress. Passing flatus.
--- NOTE | 2025-10-09 14:25 | PC.SS ---
Rounding: Pending Colonoscopy, Dr. Mayes
--- NOTE | 2025-10-09 17:30 | PC.NURSE ---
Checked patient's blood sugar before patient had dinner. blood sugar is 487. Rechecked blood sugar 490. Called Dr. Berumen and made aware. said to give sliding scale at this time. No other orders. Pt not having any other signs or symptoms. Mother of patient had given patient some snacks prior to blood sugar check. Educated mom to hold off on the snacks due to patient's blood sugar status.
[2025-10-09] MEDS: INSULIN LISPRO (AdmeLOG) 1 UNIT/0.01 ML UNIT SC ×2 (17:42→21:05)
--- NOTE | 2025-10-09 18:45 | PC.NURSE ---
Rechecked patient's blood sugar. 455 at 18:42[address] Dr. Berumen and made aware. Dr. Berumen said no new orders at this time. Check blood sugar again this evening and give sliding scale insulin. Charge nurse notified of patient blood sugar.
[2025-10-09] MEDS: INSULIN DEGLUDEC 5 UNIT/0.05 ML (PER 5 UNITS) 15 UNIT SC (21:06)
[2025-10-10] VITALS: BP 132/82; PULSE 64; PULSE 71; RESP 15; TEMP 36.1; O2SAT 95
[2025-10-10] MEDS: RINGERS LACTATED 1000 ML 1,000 ML 75 ML IV (00:05)
--- NOTE | 2025-10-10 02:23 | PC.NURSE ---
0223 DR. RANDOLPH NOTIFIED OF PINK TINGED OUTPUT AFTER PT GOING TO BATHROOM. 0225 DR. RANDOLPH AT BEDSIDE TO LOOK AT OUTPUT. NO NEW ORDERS. STATES TO CALL BACK IF COLOR TURNS RED-TINGED. WILL RELAY INFO TO DAY TEAM.
[2025-10-10 04:00] VITALS: BP 122/74; PULSE 76; PULSE 86; RESP 16; TEMP 35.9; O2SAT 95
[2025-10-10 05:21] LABS: Basophils # (Auto) 0.0 Thou/mm3 (0.0-0.2); Basophils % (Auto) 0 % (0-2.5); Eosinophils # (Auto) 0.1 Thou/mm3 (0.0-0.5); Eosinophils % (Auto) 2 % (0-10); Hematocrit 28.3 % (41.0-53.0); Immature Granulocytes Auto 0.03 Thou/mm3 (0.00-0.00); Lymphocytes # (Auto) 1.1 Thou/mm3 (1.0-4.8); Lymphocytes % (Auto) 16 % (10-50); Mean Corpuscular HGB Conc 28.3 g/dl (31.0-37.0); Mean Corpuscular Hemoglobin 19.3 pg (25.0-35.0); Mean Corpuscular Volume 68 fL (80-100); Monocytes # (Auto) 0.6 Thou/mm3 (0.0-0.8); Monocytes % (Auto) 10 % (0-12); Neutrophils # (Auto) 4.9 Thou/mm3 (1.8-7.7); Neutrophils % (Auto) 72 % (37-80); Nucleated Red Blood Cell # 0.00 Thou/mm3 (0.00-0.00); Nucleated Red Blood Cell % 0 /100 WBC (0); Platelet Count 199 Thou/mm3 (140-440); RDW Standard Deviation 59.4 fL (35.1-43.9); Red Blood Count 4.15 Miln/mm3 (4.50-5.90); White Blood Count 6.7 Thou/mm3 (3.8-10.6)
[2025-10-10 05:31] LABS: Hemoglobin 8.0 g/dL (13.5-16.0)
[2025-10-10 05:34] VITALS: BMI 21.0
[2025-10-10 06:15] LABS: Alanine Aminotransferase < 7 U/L (10-49); Albumin, Serum 4.5 gm/dL (3.5-5.0); Albumin/Globulin Ratio 1.6 (1.2-2.2); Alkaline Phosphatase 83 U/L (46-116); Anion Gap 14 (7-16); Aspartate Amino Transferase 14 U/L (0-34); BUN/Creatinine Ratio 13 Ratio (12-20); Bilirubin,Total 0.5 mg/dL (0.3-1.2); Blood Urea Nitrogen 8 mg/dL (9-23); Calcium 9.2 mg/dL (8.3-10.6); Calcium (Corrected) 9.2 mg/dL (8.5-10.1); Carbon Dioxide 23.1 mMol/L (20.0-31.0); Chloride 104 mMol/L (98-107); Creatinine (Component) 0.6 mg/dL (0.6-1.3); Estimated Creatinine Clearance 152.7 mL/min (>60); Globulin 2.8 gm/dL (2.3-3.5); Glucose 186 mg/dL (74-106); Magnesium 1.6 mg/dL (1.6-2.6); Osmolality,Calculated 284 (275-295); Phosphorous 3.7 mg/dL (2.4-5.1); Potassium 4.0 mMol/L (3.4-5.1); Sodium 141 mMol/L (136-145); Total Protein 7.3 gm/dL (5.7-8.2); eGFR > 60 See Note
--- NOTE | 2025-10-10 07:38 | ESDS_ITS ---
<Statement entered by Guillermo Temple MD - 10/19/25 08:39> I reviewed above note and agree with findings and plans. I have also personally examined the patient with medicine team and went over assessment and plan with medical team including promotions intern and resident physician. Planned Discharge Date 10/10/25 DS: Providers Provider Date of admission: 10/07/25 14:36 Primary care physician: Julia Lorenz PA-C Admitting Provider: Guillermo Temple MD Attending Provider on Admission: Giullermo Temple MD Consults: 10/07/25 13:23 Consult to Gastroenterology Stat Comment: Consulting Provider: Audi Mayes 10/07/25 17:14 [facility] Referral - Knowledge Deficit Routine Comment: Positive screening for knowledge deficit needs. Attending Provider on DC: Dr. Guillermo Temple Discharging Provider: Yun Suarez MD DS: Diagnosis Problem List Completed Was Problem List Reviewed/Reconciled?: Yes Hospital Course Hospital Course Hospital course: Hospital Course Mr. Byers is a 30 y/o male with PMH developmental delay (nonverbal at baseline), GERD, iron deficiency anemia, and T2DM who presented to the ED on 10/07 with hematochezia x1 month. Pt was found to have Hgb 6.1 on labs and 2 units of pRBCs is was transfused during hospital admission. CT angio abdomen and pelvis unremarkable. Ferritin, iron, and iron saturation were low, managed with IV Iron sucrose 200 x3 infusions. Pt underwent Colonoscopy by Dr. Mayes 10/09 and findings consistent with internal hemorrhoids which were banded. No biopsies taken because the entire colon was normal. Patient denies abdominal pain, nausea, vomiting, diarrhea, or constipation. Patient's diabetes was managed with the following regimen: Degludec 15 units and sliding scale insulin. During hospitalization Pt's A1c is 8.4. Pt will need to follow up with PCP to make adjustment to the home diabetes regimen. Upon discharge Pt may continue home Diabetes management regimen. Patient hemodynamically stable. Labs reviewed and stable. Patient's hemoglobin remained stable throughout hospitalization after transfusion. Diet was advanced and tolerated well. Patient stable and medically cleared for discharge to home. Diagnoses Hematachezia Acute on Chronic Microcytic Anemia - stable Constipation - resolved GERD Insulin Dependent Type 2 DM Developmental Delay Discharge Instructions - Follow up with PCP within 1 week of discharge, if you do not have a primary care physician you can come see us at the [facility] by calling [phone] - Continue rest of medications as previously prescribed - Return to the ED or call EMS if symptoms return and/or worsen Yun Suarez MD PGY1 Time Spent with Patient Time attestation: Total time spent providing and/or coordinating discharge services: Time spent: Greater than 30 minutes Exam Vital Signs Temp Pulse Resp BP Pulse Ox O2 Del Method O2 Flow Rate 96.7 F L 76 16 122/74 95 Room Air 3 10/10/25 04:00 10/10/25 04:00 10/10/25 04:00 10/10/25 04:00 10/10/25 04:00 10/10/25 04:00 10/09/25 13:09 Narrative Exam GENERAL: no acute distress pleasant demeanor , hx of developmental delay, unable to assess for orientation, pt is awake and engaging with provider during exam, able to follow simple commands, comfortably laying in bed HEENT: Head AT/ NC. Mucous membranes moist. PERRL. NECK: Supple, no lymphadenopathy, no carotid bruits. CARDIOVASCULAR: Normal S1/S2, No m/r/g. No pitting edema of bilateral LEs. normal capillary refill. RESPIRATORY: CTAB. No wheezing, rhonchi, crackles. GASTROINTESTINAL:abdomen is firm, non tender no palpable masses. Bowel sounds present. no epigastric tenderness on exam no grimacing on abdominal exam to deep palpation MUSCULOSKELETAL:? No cyanosis or edema, no visible joint swelling. NEUROLOGICAL: CN II-XII grossly intact. No focal deficits. Sensation intact, sy mmetric. able to follow commands PSYCHIATRIC: Awake and alert, not agitated, normal mood and affect. SKIN: anterior chest with some erythematous acne , Mom reports pt has self inflicted bite isaac on his UE. Discharge Plan Plan Patient Disposition: HOME (Self Care) Patient condition on transfer: Stable Care Plan Goals: Instructions: * Continue taking all other home medications as prescribed * Follow-up with PCP within 1-2 weeks of discharge * If you do not have a PCP, then you can follow-up at the [facility] * Return to the emergency room if symptoms worsen Prescriptions/Referrals Prescriptions/Med Rec: Continued insulin lispro [Admelog SoloStar U-100 Insulin] 100 unit/mL insulin pen 1 sliding scale dose SUBCUT .with meals insulin glargine [Basaglar KwikPen U-100 Insulin] 100 unit/mL (3 mL) insulin pen 44 unit SUBCUT HS Patient Comments: INJECT 44 UNITS SUBCUTANEOUSLY AT NIGHT omeprazole 20 mg capsule,delayed release(DR/EC) 20 mg PO QDAY Patient Comments: TAKE 1 CAPSULE BY MOUTH ONCE DAILY 30 MINUTES BEFORE MORNING MEAL risperidone 0.5 mg tablet 0.5 mg PO BID Patient Comments: TAKE 1 TABLET BY MOUTH WITH BREAKFAST AND 2 AT BEDTIME Rx Instructions: 0.5 mg orally; olanzapine 2.5 mg tablet 2.5 mg PO QDAY Patient Comments: TAKE 1 TABLET BY MOUTH once DAILY Janumet 50-500 mg tablet 1 tab PO BIDWM Patient Comments: TAKE 1 TABLET BY MOUTH TWICE DAILY WITH MEALS Referrals: Julia Lorenz PA-C [Primary Care Provider] Patient/Caregiver Discharge Instructions Education Materials: Anemia, Colonoscopy Print Language: Egyptian Stand Alone Forms: Silvina Award Info., Patient Portal Info Letter Discharge Order Discharge Orders: Discharge (Routine); Ordered 10/10/25 Ordered By: Yun Suarez Quality Discharge Quality Measures VTE prophylaxis
[2025-10-10] MEDS: INSULIN LISPRO (AdmeLOG) 1 UNIT/0.01 ML UNIT SC (07:48)
[2025-10-10 08:00] VITALS: BP 126/81; PULSE 68; PULSE 73; RESP 17; TEMP 35.9; O2SAT 98
[2025-10-10] MEDS: IRON SUCROSE CPLX INJ 20 MG/ML VIAL 5 ML 200 MG IVP (08:56)
--- NOTE | 2025-10-10 09:50 | PC.NURSE ---
discharge orders are in. Spoke with Dr. Jacome. said the team will round on the patient one more time before we discharge. After that, patient can go.
[2025-10-10 12:00] VITALS: BP 131/86; PULSE 82; PULSE 83; RESP 22; TEMP 36.3; O2SAT 99
--- NOTE | 2025-10-10 17:19 | PD.IMPROG ---
Documentation for date of: 10/10/25 Subjective Subjective Interval history: Late entry for the note Hemoglobin hematocrit stable at 8.0 and 28.4 Okay to discharge patient to be followed by the PCP He is status post band ligation of the large grade 4 internal hemorrhoids at least 5 bands were put in Exam Vital Signs Temp Pulse Resp BP Pulse Ox O2 Del Method O2 Flow Rate 97.4 F 82 22 H 131/86 H 99 Room Air 3 10/10/25 12:00 10/10/25 12:00 10/10/25 12:00 10/10/25 12:00 10/10/25 12:00 10/10/25 12:00 10/09/25 13:09 Objective Labs 10/10/25 04:37 10/10/25 04:37 Labs: Laboratory Results - last 24 hr 10/10/25 04:37 WBC 6.7 RBC 4.15 L Hgb 8.0 L Hct 28.3 L MCV 68 L MCH 19.3 L MCHC 28.3 L RDW Std Deviation 59.4 H Plt Count 199 D Neut % (Auto) 72 Lymph % (Auto) 16 [place] % (Auto) 10 Eos % (Auto) 2 Baso % (Auto) 0 Neut # (Auto) 4.9 Lymph # (Auto) 1.1 [place] # (Auto) 0.6 Eos # (Auto) 0.1 Baso # (Auto) 0.0 Immature Gran # (Auto) 0.03 H Absolute Nucleated RBC 0.00 Immature Gran % 0 Nucleated RBC % 0 Sodium 141 Potassium 4.0 Chloride 104 Carbon Dioxide 23.1 Anion Gap 14 BUN 8 L Creatinine 0.6 Estim Creat Clear Calc 152.7 eGFR > 60 BUN/Creatinine Ratio 13 Glucose 186 H Calculated Osmolality 284 Calcium 9.2 Corrected Calcium 9.2 Phosphorus 3.7 Magnesium 1.6 Total Bilirubin 0.5 AST 14 ALT < 7 L Alkaline Phosphatase 83 Total Protein 7.3 Albumin 4.5 Globulin 2.8 Albumin/Globulin Ratio 1.6 Impressions Impression: Hematochezia secondary to large grade 4 internal hemorrhoids requiring band ligation in total 5 bands were put in Hemoglobin hematocrit stable Outpatient follow-up with the PCP Assessment & Plan Time Spent With Patient Time: Total time spent is greater than 50% in coordination of care (as documented) at patient's floor/unit and/or counseling patient:
== END 2025-10-10 12:46 | disposition home or self-care (01) | DRG 226 ==
LOC: SERX 14:24 → SERHOLD 14:50 → S2NX 16:28
PROVIDERS: Specialist; Admitting Provider Internal Medicine; Emergency Provider Family Medicine; PCP Physician Assistant Medical; Visit Provider Internal Medicine
PROC: 0DJD8ZZ Inspection of Lower Intestinal Tract, Via Natural or Artificial Opening Endoscopic (ICD-10-PCS; CPT 45378; principal; 2025-10-09 12:00)
DX: K64.3 Fourth degree hemorrhoids (principal); D62 Acute posthemorrhagic anemia; K21.9 Gastro-esophageal reflux disease without esophagitis; E11.9 Type 2 diabetes mellitus without complications; F41.9 Anxiety disorder, unspecified; D50.9 Iron deficiency anemia, unspecified; E87.20 Acidosis, unspecified; K59.00 Constipation, unspecified; Z79.4 Long term (current) use of insulin; Z79.84 Long term (current) use of oral hypoglycemic drugs
CPT/HCPCS: 36415; 74174; 80053; 82728; 83036; 83540; 83550; 83605; 83735; 84100; 85014; 85018; 85025; 85046; 86850; 86900; 86901; 86923; 93005; 96360; 96361; 96374; 96376; 99284; A4649; J1200; J1756; J1815; J2250; J2470; J3010; J3475; J7120; P9016; Q9967

== ENCOUNTER 2025-10-28 17:12 | Emergency (ER) | payer MEDICAID, SELFPAY ==
[2025-10-28 17:28] VITALS: BP 136/84; PULSE 93; RESP 18; TEMP 36.6; O2SAT 97; BMI 23.4
--- NOTE | 2025-10-28 17:30 | EDRME_ITS ---
Rapid Medical Screening Exam RME Arrival date/time: 10/28/25 17:12 Chief Complaint: Recheck/Abnormal Lab/Rx Time Seen by Provider: 10/28/25 17:20 RME Narrative: 30-year-old male with a past medical history of insulin-dependent diabetes presents to the ER complaining of sugars of 600 at home as well as being sleepier than normal. Denies any fever, cough, dysuria, frequency, urgency, nausea, vomiting. I briefly performed a screening evaluation to initiate work- up and expedite care. Complete history, physical exam, and plan of care is deferred to the provider in the main ED. Exam: Head: Normocephalic, atraumatic. Respiratory: Normal effort. No respiratory distress or accessory muscle use. Neuro: Speech normal. Skin: Warm, dry, normal color. Psych: Pleasant. Normal affect. Cooperative. Clinical Impression: Hyperglycemia
[2025-10-28 18:09] LABS: Beta Hydroxybutyrate 0.1 mmol/L (<0.6)
[2025-10-28 18:16] LABS: Basophils # (Auto) 0.1 Thou/mm3 (0.0-0.2); Basophils % (Auto) 1 % (0-2.5); Eosinophils # (Auto) 0.2 Thou/mm3 (0.0-0.5); Eosinophils % (Auto) 3 % (0-10); Hematocrit 34.4 % (41.0-53.0); Hemoglobin 10.3 g/dL (13.5-16.0); Immature Granulocytes Auto 0.02 Thou/mm3 (0.00-0.00); Lymphocytes # (Auto) 1.5 Thou/mm3 (1.0-4.8); Lymphocytes % (Auto) 21 % (10-50); Mean Corpuscular HGB Conc 29.9 g/dl (31.0-37.0); Mean Corpuscular Hemoglobin 22.1 pg (25.0-35.0); Mean Corpuscular Volume 74 fL (80-100); Monocytes # (Auto) 0.3 Thou/mm3 (0.0-0.8); Monocytes % (Auto) 5 % (0-12); Neutrophils # (Auto) 5.2 Thou/mm3 (1.8-7.7); Neutrophils % (Auto) 71 % (37-80); Nucleated Red Blood Cell # 0.00 Thou/mm3 (0.00-0.00); Nucleated Red Blood Cell % 0 /100 WBC (0); Platelet Count 638 Thou/mm3 (140-440); Red Blood Count 4.67 Miln/mm3 (4.50-5.90); White Blood Count 7.3 Thou/mm3 (3.8-10.6)
--- NOTE | 2025-10-28 18:35 | PD.EDRECHK ---
ED Recheck Abnl Lab Rx-RME/HPI General Chief Complaint: Recheck/Abnormal Lab/Rx Stated Complaint: BS HIGH Time Seen by Provider: 10/28/25 17:20 Arrival date/time: 10/28/25 17:12 RME / HPI RME / HPI narrative: 30-year-old male with a past medical history of insulin-dependent diabetes presents to the ER complaining of sugars of 600 at home as well as being sleepier than normal. Denies any fever, cough, dysuria, frequency, urgency, nausea, vomiting. I briefly performed a screening evaluation to initiate work-up and expedite care. Complete history, physical exam, and plan of care is deferred to the provider in the main ED. See MDM for Dr. Metzger's HPI documentation. Related Data Home Medications ?Medication ?Instructions ?Recorded ?Confirmed insulin glargine 100 unit/mL (3 44 unit subcut HS 10/07/25 10/07/25 mL) subcutaneous pen (Basaglar KwikPen U-100 Insulin) insulin lispro 100 unit/mL 1 sliding scale dose subcut .with 10/07/25 10/07/25 subcutaneous pen (Admelog SoloStar meals U-100 Insulin lispro) olanzapine 2.5 mg tablet 2.5 mg PO QDAY 10/07/25 10/07/25 omeprazole 20 mg capsule,delayed 20 mg PO QDAY 10/07/25 10/07/25 release risperidone 0.5 mg tablet 0.5 mg PO BID 10/07/25 10/07/25 sitagliptin phosphate 50 1 tab PO BIDWM 10/07/25 10/07/25 mg-metformin 500 mg tablet (Janumet) Previous Rx's ?Medication ?Instructions ?Recorded azithromycin 500 mg tablet 500 mg PO QDAY 3 days #3 tabs 10/28/25 (Zithromax TRI-JAMARI) Allergies Allergy/AdvReac Type Severity Reaction Status Date / Time pseudoephedrine Allergy Severe PT GETS Verified 10/07/25 11:22 HYPER PER MOM Review of Systems Review of Systems ROS Unobtainable: other (unobtainable due to the patient being nonverbal) Past Medical History Past Medical History NEUROLOGIC: Negative Seizures CARDIAC: Negative Cardiac Disorders or Congestive Heart Failure RESPIRATORY: Negative Chronic Obstructive Pulmonary Disease (COPD) or Asthma GASTROINTESTINAL: Positive Gastroesophageal Reflux Disease GENITOURINARY: Negative Renal Disease ENDOCRINE: Positive Diabetes Mellitus Type 2; Negative Diabetes Mellitus Type 1 HEMATOLOGIC: Negative Sickle Cell Disease PSYCHO/SOCIAL: Positive Anxiety OTHER HISTORY: Positive Autism and Blood Transfusions; Negative Blood Transfusion Reaction or Anesthesia Reactions Social History SMOKING STATUS: Never smoker ED Exam Narrative Physical exam: See MDM for Dr. Metzger's physical exam documentation. Course Quality Measures none Orders Category Date Time Status Bedside COVID-19 Antigen Test NOW Care 10/28/25 18:39 Completed Bedside Influenza A&B Antigen Test NOW Care 10/28/25 18:39 Completed EKG (ED ONLY) *Do not use* NOW Care 10/28/25 18:40 Completed Glucose [Bedside Blood Glucose] NOW Care 10/28/25 20:28 Completed Saline [Insert IV] NOW Care 10/28/25 18:39 Completed Straight [In and Out Catheter] X1 Care 10/28/25 18:39 Completed EKG (ED Only) Stat Exams 10/28/25 18:40 Draft XR chest 1V portable Stat Exams 10/28/25 18:40 Completed BNP [B-Type Natriuretic Peptide] Stat Lab 10/28/25 19:54 Completed Beta Hydroxybutyrate Stat Lab 10/28/25 17:48 Completed Bilirubin,Direct Stat Lab 10/28/25 17:48 Completed Blood Culture (Lab) Stat Lab 10/28/25 19:53 Received C-Reactive Protein Stat Lab 10/28/25 17:48 Completed CBC Stat Lab 10/28/25 17:48 Completed CMP [Comprehensive Metabolic Panel] Stat Lab 10/28/25 17:48 Completed Hemoglobin A1C [Glycohemoglobin w (eAG)] Stat Lab 10/28/25 19:54 Completed Lactate (Lactic Acid) Stat Lab 10/28/25 19:53 Completed Magnesium Stat Lab 10/28/25 17:48 Completed Procalcitonin Stat Lab 10/28/25 17:48 Completed Sed Rate (ESR) Stat Lab 10/28/25 17:48 Completed Thyroid Stimulating Hormone Stat Lab 10/28/25 17:48 Completed Troponin I Stat Lab 10/28/25 17:48 Completed UA, C/S IF [Urinalysis, C/S if Indicated] Stat Lab 10/28/25 19:10 Completed VBG [Venous Blood Gas] Stat Lab 10/28/25 19:53 Completed Insulin Regular Med 10/28/25 18:39 Discontinued 5 unit IV X1 ONE Insulin Regular Med 10/28/25 20:59 Discontinued 5 unit IV X1 ONE Magnesium Sulfate 2 GM Ivpb [Magnesium Sulfate Ivpb] Med 10/28/25 20:59 Discontinued 2 gm in 50 ml IV X1 Ondansetron Inj [Zofran Inj] Med 10/28/25 18:39 Discontinued 4 mg IVP X1 ONE Sodium Chloride 0.9% 1000 ml [Ns] 1,000 ml Med 10/28/25 17:29 Discontinued IV 999 mls/hr Vital Signs Vital signs: Vital Signs Temperature 98 F 10/28/25 17:28 Pulse Rate 93 10/28/25 17:28 Respiratory Rate 18 10/28/25 17:28 Blood Pressure 136/84 H 10/28/25 17:28 Pulse Oximetry (%) 97 10/28/25 17:28 Oxygen Delivery Method Room Air 10/28/25 17:28 Recheck / Abnormal Lab / Rx MDM Narrative MDM Narrative:: This section includes all my notes and documentations, including HPI, PE, and ED course. Adan Metzger MD HPI: 30-year-old male with history of developmental delay, IDDM here with elevated blood sugar. Just [employer], home glucose > 600. Mom gave him insulin and brought him here for care. Has been fatigued for the past several days. No cough. No fever. No vomiting. No abdominal pain. No other complaints. ROS: Unable to obtain due to the patient being nonverbal. General:? Alert.? No acute distress.?? Eyes:? Conjunctivae and lids clear.? EOMI.? PERRL. ENT:? No nasal congestion.? Pharynx normal.? Tympanic membrane normal bilaterally.??? Neck:? Supple.? No carotid bruit.? No JVD.?? Heart:? RRR.? Lungs:? No respiratory distress.? Good air movement.? No rhonchi, wheezing, rales.?? Abdomen:? Soft and nontender.? Normal bowel sounds.? No distension.? No rebound or guarding.?? Back:? No CVA tenderness.?? Legs:? No clubbing, cyanosis, edema.? Skin:? Warm and dry.?? Neuro:? Alert. Cranial Nerves II-XII grossly intact.? No peripheral motor deficits. I reviewed all diagnostic test results. My interpretation of the EKG is sinus rhythm with nonspecific ST-T changes. My interpretation of the chest x-ray is NAD. Blood/urine tests remarkable for Glucose 435 and Mg 1.5. COVID/Influenza negative. At this point, diagnoses include: Hyperglycemia Hypomagnesemia Dehydration Treatment here included: IVF Zofran 4 mg IV Insulin 5 units IV X 2 MgSO4 2 gram IV Significant improvement noted. Recommended outpatient care. Based on my best medical judgment, made decision no further evaluation or treatment indicated at this time. Mom understands and agrees to the discharge instructions customized and printed, see below. Discharge Instructions from Dr. Metzger printed for you: 1. After extensive evaluation, exact cause of high sugar levels was not determined. There is no life-threatening condition. Such as heart attack or DKA (diabetic ketoacidosis). There is no serious infection. Such as COVID or influenza or urine infection. 2. He was treated for mild dehydration and low magnesium level. 3. For good hydration, increase oral fluid and maintain clear urine. If dark or yellow, increase oral fluid. 4. Increase food rich in magnesium. Such as green and leafy vegetables and peanuts and almonds and cashews. 5. See a private doctor on 10/29/2025 for recheck and second opinion. Ask to review all test results and official radiology reports, to make sure you receive all necessary follow-ups and monitoring, including repeat magnesium level. 6. Seek immediate medical care with worsening or with any concerns. Adan Metzger MD Patient data External records reviewed:: [facility] previous records (Per chart review, patient was admitted here on 10/07/25 for acute bleeding.) Clinical information provided by:: patient Social determinants that could affect healthcare access:: none Patient has the following chronic illnesses:: developmental delay (nonverbal at baseline), GERD, iron deficiency anemia, DMII How is presenting disease/condition affected by chronic disease/condition?: exacerbated by Evaluation data The following diagnostics were reviewed and interpreted by me:: lab results, radiology exam(s) and EKG tracing(s) (My interpretation of the EKG is: Sinus rhythm (83 bpm) with nonspecific ST-T changes. Adan Metzger MD) Lab and/or radiology exams considered but not ordered:: none Interpretation Summary: I reviewed all diagnostic test results. My interpretation of the EKG is sinus rhythm with nonspecific ST-T changes. My interpretation of the chest x-ray is NAD. Blood/urine tests remarkable for Glucose 435 and Mg 1.5. COVID/Influenza negative. Medications / Prescriptions Medications or Prescriptions considered but not ordered:: none Medication administrations:: Medication Administration History Discontinued Medications Sodium Chloride (Ns) 1,000 mls @ 999 mls/hr IV .Q1H1M ONE Stop: 10/28/25 18:29 Last Infusion: 10/28/25 20:58 Dose: Infused Documented By: Admin: 10/28/25 19:52 Dose: 999 mls/hr Documented By: VIELKA Magnesium Sulfate (Magnesium Sulfate Ivpb) 2 gm in 50 mls @ 50 mls/hr IV X1 ONE Stop: 10/28/25 21:58 Last Infusion: 10/28/25 22:39 Dose: Infused Documented By: Admin: 10/28/25 21:36 Dose: 50 mls/hr Documented By: VIELKA Insulin Human Regular (Insulin Hum Regular 1 Unit/0.01 Ml (Per Unit)) 5 unit IV X1 ONE Stop: 10/28/25 18:40 Last Admin: 10/28/25 19:54 Dose: 5 unit Documented By: VIELKA Co-signed By: SUN Insulin Human Regular (Insulin Hum Regular 1 Unit/0.01 Ml (Per Unit)) 5 unit IV X1 ONE Stop: 10/28/25 21:00 Last Admin: 10/28/25 21:36 Dose: 5 unit Documented By: VIELKA Co-signed By: SUN Ondansetron HCl (Ondansetron Inj 2 Mg/Ml Inj 2 Ml) 4 mg IVP X1 ONE; Protocol Stop: 10/28/25 18:40 Last Admin: 10/28/25 19:52 Dose: 4 mg Documented By: VIELKA Treatment here included: IVF Zofran 4 mg IV Insulin 5 units IV X 2 MgSO4 2 gram IV Consultations Consultation(s) initiated? (list below): No Diagnosis Recheck Differential Diagnosis: other (DKA, Pneumonia, UTI, Dehydration, Electrolyte Abnormalities) Most likely diagnosis given after review of the tests above:: Hyperglycemia Hypomagnesemia Dehydration Admission Indicated Admission indicated?: not indicated Explain why admission is indicated or not indicated:: With significant improvement and no condition needing emergent intervention, there was no indication for admission. Admission Request Was there a request for admission?: No Disposition Plan Disposition Plan: Discharge Discharge Attestation Discharge Attestation: The patient and all family members were given an opportunity to ask questions and understood the discharge instructions. Discharge instructions specifically effects, indications for sooner follow up or return to the emergency department, and the expected course of current diagnosis. Patient condition: Stable Discharge Plan Plan Patient Disposition: HOME (Self Care) Prescriptions/Referrals Prescriptions/Med Rec: New azithromycin [Zithromax TRI-JAMARI] 500 mg tablet 500 mg PO QDAY 3 Days Qty: 3 0RF No Action insulin lispro [Admelog SoloStar U-100 Insulin] 100 unit/mL insulin pen 1 sliding scale dose SUBCUT .with meals insulin glargine [Basaglar KwikPen U-100 Insulin] 100 unit/mL (3 mL) insulin pen 44 unit SUBCUT HS Patient Comments: INJECT 44 UNITS SUBCUTANEOUSLY AT NIGHT omeprazole 20 mg capsule,delayed release(DR/EC) 20 mg PO QDAY Patient Comments: TAKE 1 CAPSULE BY MOUTH ONCE DAILY 30 MINUTES BEFORE MORNING MEAL risperidone 0.5 mg tablet 0.5 mg PO BID Patient Comments: TAKE 1 TABLET BY MOUTH WITH BREAKFAST AND 2 AT BEDTIME Rx Instructions: 0.5 mg orally; olanzapine 2.5 mg tablet 2.5 mg PO QDAY Patient Comments: TAKE 1 TABLET BY MOUTH once DAILY Janumet 50-500 mg tablet 1 tab PO BIDWM Patient Comments: TAKE 1 TABLET BY MOUTH TWICE DAILY WITH MEALS Referrals: Julia Lorenz PA-C [Primary Care Provider] - In 1 week Problem List Clinical Impression: Hyperglycemia, Hypomagnesemia, Dehydration Patient/Caregiver Discharge Instructions Discharge Activity: activity as tolerated Education Materials: Magnesium (Blood), ED Diabetes with High Blood Sugar, ED Dehydration (Adult) Additional Instructions: Discharge Instructions from Dr. Metzger printed for you: 1. After extensive evaluation, exact cause of high sugar levels was not determined. There is no life-threatening condition. Such as heart attack or DKA (diabetic ketoacidosis). There is no serious infection. Such as COVID or influenza or urine infection. 2. He was treated for mild dehydration and low magnesium level. 3. For good hydration, increase oral fluid and maintain clear urine. If dark or yellow, increase oral fluid. 4. Increase food rich in magnesium. Such as green and leafy vegetables and peanuts and almonds and cashews. 5. See a private doctor on 10/29/2025 for recheck and second opinion. Ask to review all test results and official radiology reports, to make sure you receive all necessary follow-ups and monitoring, including repeat magnesium level. 6. Seek immediate medical care with worsening or with any concerns. Print Language: Dutch Stand Alone Forms: [employer] Award Info., Patient Portal Info Letter
--- NOTE | 2025-10-28 18:40 | XR_ITS ---
EXAMINATION: PA chest single view TECHNIQUE: Upright PA chest single view Date and time: October 28, 2025, 1903 hours INDICATION: Shortness of breath today. FINDINGS: Suspicious for early left basilar pneumonia Right lung clear Normal heart size IMPRESSION: Suspicious for early left basilar pneumonia
--- NOTE | 2025-10-28 18:40 | EKG_ITS ---
[facility] Test Date: 2025-10-28 Pat Name: MARYA BROOKS Department: Room: - Gender: Male Physician Neonatology: : 1995 Requested By: Adan Gay Order Number: [id number] Reading MD: Adan Gay Measurements Intervals [place] Rate: 83 P: 37 CO: 125 QRS: 20 QRSD: 86 T: 40 QT: 348 QTc: 410 Interpretive Statements SINUS RHYTHM WITH MARKED SINUS ARRHYTHMIA Compared to ECG 10/07/2025 12:35:09 Junctional tachycardia no longer present /store/S0/[id number].pdf
[2025-10-28 18:55] LABS: Alanine Aminotransferase < 7 U/L (10-49); Albumin, Serum 4.4 gm/dL (3.5-5.0); Albumin/Globulin Ratio 1.5 (1.2-2.2); Alkaline Phosphatase 78 U/L (46-116); Anion Gap 11 (7-16); Aspartate Amino Transferase 14 U/L (0-34); BUN/Creatinine Ratio 15 Ratio (12-20); Bilirubin,Total 0.2 mg/dL (0.3-1.2); Blood Urea Nitrogen 12 mg/dL (9-23); Calcium 9.2 mg/dL (8.3-10.6); Calcium (Corrected) 9.2 mg/dL (8.5-10.1); Carbon Dioxide 24.0 mMol/L (20.0-31.0); Chloride 104 mMol/L (98-107); Creatinine (Component) 0.8 mg/dL (0.6-1.3); Estimated Creatinine Clearance 114.1 mL/min (>60); Globulin 3.0 gm/dL (2.3-3.5); Potassium 3.9 mMol/L (3.4-5.1); Sodium 139 mMol/L (136-145); Total Protein 7.4 gm/dL (5.7-8.2); eGFR > 60 See Note
[2025-10-28 19:19] LABS: Osmolality,Calculated 296 (275-295)
[2025-10-28 19:20] LABS: Glucose 435 mg/dL (74-106)
[2025-10-28 19:30] VITALS: BP 138/96; PULSE 89; RESP 18; TEMP 36.8; O2SAT 95
[2025-10-28 19:33] LABS: Collection Type, Urine Clean Catch; WBC,Urine 0 /hpf (0-5)
[2025-10-28 19:45] LABS: Bilirubin,Urine Negative (Negative); Blood,Urine Negative (Negative); Clarity,Urine Clear (Clear/Hazy); Color,Urine Colorless (Lt Yel-Yel); Culture Indicated,Urine Not Indicated; Glucose, Urine 4+ (Negative); Ketones,Urine Negative (Negative); Leukocyte Esterase,Urine Negative (Negative); Nitrite,Urine Negative (Negative); PH,Urine 6.5 (5.0-7.0); Protein,Urine Negative (Neg - Trace); RBC,Urine 1 /hpf (0-3); Specific Gravity,Urine 1.031 (1.001-1.035); Squamous Epithelial Cell,Urine < 1 /hpf (0-5); Urobilinogen,Urine Negative mg/dL (0.0-1.0)
[2025-10-28] MEDS: ONDANSETRON INJ 2 MG/ML INJ 2 ML 4 MG IVP (19:52)
[2025-10-28] MEDS: SODIUM CHLORIDE 0.9% 1000 ML 1,000 ML 999 ML IV (19:52)
[2025-10-28] MEDS: INSULIN HUM REGULAR 1 UNIT/0.01 ML (PER UNIT) 5 UNIT IV ×2 (19:54→21:36)
[2025-10-28 19:57] LABS: Base Excess, Venous 0 (-3-3); O2 Saturation, Venous 99 % (96-97); PCO2, Venous 38 mmHg (36-56); PO2, Venous 91 mmHg (15-58); pH, Venous 7.42 (7.33-7.66)
[2025-10-28 20:01] LABS: Lactate (Lactic Acid) 2.4 mMol/L (0.4-2.0)
[2025-10-28 20:16] LABS: Sed Rate (ESR) 17 mm/hr (0-15)
[2025-10-28 20:57] LABS: Bilirubin,Direct < 0.1 mg/dL (0.0-0.3); C-Reactive Protein < 0.5 mg/dL (0.0-0.9); Magnesium 1.5 mg/dL (1.6-2.6); Procalcitonin < 0.04 ng/ml (0.0-0.49); Thyroid Stimulating Hormone 1.84 uIU/mL (0.55-4.78); Troponin I < 0.002 ng/mL (0.0-0.045)
[2025-10-28 20:57] LABS: B-Type Natriuretic Peptide < 20 pg/mL (0-100)
[2025-10-28] MEDS: Magnesium Sulfate 2 GM Ivpb 2 GM/50 ML BAG IV (21:36)
[2025-10-28 21:59] LABS: Glucose Estimated Average 180 mg/dL (80-131); Hemoglobin A1C 7.9 % Hgb (4.8-6.0)
[2025-10-28 22:39] VITALS: BP 128/95; PULSE 113; RESP 18; O2SAT 97
[2025-10-28 22:53] LABS: Reflex Lactate? Y
== END 2025-10-28 22:40 | disposition home or self-care (01) ==
PROVIDERS: Physician Assistant; Emergency Provider Emergency Medicine; PCP Physician Assistant Medical
DX: E11.65 Type 2 diabetes mellitus with hyperglycemia (principal); E86.0 Dehydration; E83.42 Hypomagnesemia; R06.02 Shortness of breath; I49.8 Other specified cardiac arrhythmias; Z79.4 Long term (current) use of insulin; Z79.84 Long term (current) use of oral hypoglycemic drugs
CPT/HCPCS: 36415; 71045; 80053; 81001; 82010; 82248; 82803; 83036; 83605; 83735; 83880; 84145; 84443; 84484; 85025; 85652; 86140; 87040; 87502; 87635; 93005; 96361; 96365; 96375; 99284; J1815; J2405; J3475; J7030